=== PATIENT | female | born 1950 | race Caucasian/White ===

== ENCOUNTER 2019-01-28 07:37 | Emergency (ER) | payer MEDICARE, MEDICAID ==
[~2019-01-28] VITALS: Ht 157.5 cm; Wt 65.9 kg
[2019-01-28 09:43] LABS: BASO % 0.5 % (0.0-1.0); EOS # 0.1 10^3/uL (0.0-0.50); HEMATOCRIT 47.8 % (36.0-47.0); HEMOGLOBIN 16.2 g/dl (12.0-15.5); LYMPH # 1.8 10^3/uL (1.5-4.5); LYMPH % 22.8 % (24.0-44.0); MEAN CORPUSCULAR HEMOGLOBIN 30.3 pg (27.0-33.0); MEAN CORPUSCULAR HGB CONC 33.9 g/dl (32.0-36.5); MEAN CORPUSCULAR VOLUME 89.3 fl (80.0-96.0); MONO # 0.4 10^3/uL (0.0-0.8); MONO % 5.5 % (0.0-5.0); NEUTROPHILS # 5.6 10^3/uL (1.8-7.7); NEUTROPHILS % 69.8 % (36.0-66.0); PLATELET COUNT, AUTOMATED 272 10^3/uL (150-450); RED BLOOD COUNT 5.35 10^6/uL (4.00-5.40)
[2019-01-28 09:59] LABS: PARTIAL THROMBOPLASTIN TIME 25.4 SECONDS (25.4-37.6)
[2019-01-28 10:20] LABS: ALBUMIN 4.4 GM/DL (3.2-5.2); ALT/SGPT 23 U/L (12-78); BILIRUBIN,DIRECT 0.1 MG/DL (0.0-0.2); BILIRUBIN,TOTAL 0.6 MG/DL (0.2-1.0); BLOOD UREA NITROGEN 19 MG/DL (7-18); CALCIUM LEVEL 8.6 MG/DL (8.8-10.2); CARBON DIOXIDE LEVEL 25 MEQ/L (21-32); CHLORIDE LEVEL 111 MEQ/L (98-107); CPK CREATINE PHOSPHOKINASE 187 U/L (26-192); CREATININE FOR GFR 0.83 MG/DL (0.55-1.30); FREE T4 0.98 NG/DL (0.76-1.46); GLOMERULAR FILTRATION RATE > 60.0 (>39); GLUCOSE, FASTING 93 MG/DL (70-100); MB/CK RELATIVE INDEX 2.13 (< OR =4); NT-PRO BNP 726 PG/ML (<125); POTASSIUM SERUM 3.5 MEQ/L (3.5-5.1); SODIUM LEVEL 143 MEQ/L (136-145); TROPONIN I 0.03 NG/ML (< 0.10)
[2019-01-28 10:37] LABS: D-DIMER QUANT 754.77 ng/ml (<500)
--- NOTE | 2019-01-28 10:40 | REP ---
REASON: Chest pain. AP and lateral views were obtained. PRIORS: None. The technique utilized in obtaining the radiograph has magnified the cardiac silhouette and accentuated the interstitial markings. FINDINGS: The superior mediastinal structures are midline. The cardiac silhouette is unremarkable in size, shape, and position. The diaphragmatic surfaces of the lungs are regular, and the costophrenic angles are clear. The pulmonary dickerson are clear. The imaged osseous structures are intact. IMPRESSION: There is no acute cardiopulmonary disease. Electronically Signed by Greg Brooke DO 01/28/2019 01:51 P
--- NOTE | 2019-01-28 10:42 | REP ---
REASON: Back pain and hip pain. PRIORS: None. There is partial syndesmophyte formation at every level bilaterally but particularly on the right at L3-4. There is air density in L3-4 and L4-5 disc spaces consistent with vacuum phenomena from degenerative disc disease. There is significant disc space narrowing at those levels along with endplate sclerosis. There is anterior lipping at every level. Vertebral body height is within normal limits. Degenerative facet joint changes are present at every level bilaterally. IMPRESSION: Chronic changes as described above. Electronically Signed by Greg Brooke DO 01/28/2019 01:51 P
--- NOTE | 2019-01-28 10:43 | REP ---
REASON: Pain. PRIORS: None. There is mild to moderate asymmetric hip joint space narrowing. There is no acute fracture, dislocation, or subluxation. IMPRESSION: Degenerative changes. Electronically Signed by Greg Brooke DO 01/28/2019 01:51 P
[2019-01-28 10:45] LABS: INR 0.96; PROTHROMBIN TIME 12.9 SECONDS (12.1-14.4)
[2019-01-28] MEDS ORDERED: LISINOPRIL 10 MG TAB PO ONE ×2 (11:00→13:00)
[2019-01-28] MEDS ORDERED: FUROSEMIDE 20 MG/2 ML VIAL (J1940) IV ONE (11:00)
[2019-01-28 11:04] LABS: APPEARANCE, URINE CLEAR (CLEAR); BACTERIA, URINE AUTO NEGATIVE (NEGATIVE); BILIRUBIN, URINE AUTO NEGATIVE (NEGATIVE); BLOOD, URINE BLOOD NEGATIVE (NEGATIVE); COLOR, URINE YELLOW (YELLOW); GLUCOSE, URINE (UA) AUTO NEGATIVE (NEGATIVE); KETONE, URINE AUTO NEGATIVE (NEGATIVE); LEUKOCYTE ESTERASE, URINE AUTO NEGATIVE (NEGATIVE); MUCUS, URINE SMALL (NEGATIVE); NITRITE, URINE AUTO NEGATIVE (NEGATIVE); PROTEIN, URINE AUTO NEGATIVE (NEGATIVE); RBC, URINE AUTO 1 /HPF (0-3); SQUAMOUS EPITHELIAL CELL UR AU 0 /HPF (0-6); UROBILINOGEN, URINE AUTO 0.2 mg/dL (0.0-2.0); WBC, URINE AUTO 0 /HPF (0-3)
[2019-01-28] MEDS ORDERED: POTASSIUM CHLORIDE 10 MEQ SR TABLET PO ONE (11:15)
[2019-01-28 11:29] LABS: CREATININE, URINE 59.7 MG/DL; MALB URINE SIEMENS 34.5 MG/L; MAU/CREAT RATIO 57.7 MCG/MG (0.0-30.0)
[2019-01-28] MEDS ORDERED: CHLORTHALIDONE 12.5MG PER 1/2 TABLET PO ONE (16:00)
[2019-01-28] MEDS ORDERED: CARVedilol 12.5 MG TAB PO ONE (17:30)
[2019-01-28] MEDS ORDERED: ACETAMINOPHEN 650MG ER TAB (TYLENOL ARTHRITIS) PO ONE (17:30)
[2019-01-28 18:21] VITALS: BP 168/101
[2019-01-28 18:48] VITALS: BP 172/91
[2019-01-28] MEDS ORDERED: LISI10TA4 PO (18:53)
[2019-01-28] MEDS ORDERED: CARV12.5 PO (18:53)
[2019-01-28] MEDS ORDERED: CHLO125TA PO (18:53)
--- NOTE | 2019-01-28 20:59 | ECGEPIP ---
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
== END 2019-01-28 19:28 | disposition home or self-care (01) ==
LOC: M ED 07:37
DX: I10 Essential (primary) hypertension (principal); M16.11 Unilateral primary osteoarthritis, right hip; M54.16 Radiculopathy, lumbar region; Z72.0 Tobacco use
CPT/HCPCS: 71046; 72110; 73502; 80048; 80076; 81001; 82043; 82550; 82553; 83880; 84439; 84443; 84484; 85025; 85379; 85610; 85730; 93005; 96374; 99284; J1940

== ENCOUNTER → 2019-02-06 | Outpatient (REF) | payer MEDICARE, MEDICAID ==
[~2019-02-06] MED LIST: CARV12.5 PO; CHLO125TA PO; LISI10TA4 PO
[2019-02-06 13:41] LABS: CHOLESTEROL RISK RATIO 4.901 (<5)
[2019-02-06 14:18] LABS: HEMOGLOBIN A1c 5.8 %
== END ==
LOC: M SFHCPLAZ 09:19
PROVIDERS: ATTEND Family Medicine
DX: Z13.1 Encounter for screening for diabetes mellitus (principal); Z13.220 Encounter for screening for lipoid disorders; Z12.11 Encounter for screening for malignant neoplasm of colon

== ENCOUNTER → 2019-03-26 | Outpatient (CLI) | payer MEDICARE, MEDICAID ==
[~2019-03-26] MED LIST changes: +ISOVUE-370 76% 100ML VIAL (Q9967) As Ordered ONE
--- NOTE | 2019-03-26 13:49 | REP ---
CT of the abdomen, pelvis not included, with IV contrast, for renal artery stenosis: Axial images are acquired helical scanning and a reformatted in sagittal, coronal and maximal intensity projection 3-D angiographic for mass. There is a large calcified atheromatous plaque in the proximal left renal artery near its origin on the dedicated left renal artery reformats, utilizing the transverse diameter of the renal artery there is approximately 80% stenosis in this location. No other left renal artery stenosis is identified. The plaque is within the origin of the left renal artery. There is no atheromatous plaque in the aortic wall above or below the level of the left artery. There are several small calcified atheromatous plaques at the origin of the right renal artery resulting in less than 50% stenosis. There is an aneurysm of the distal abdominal aorta just above the bifurcation containing intraluminal thrombus. The diameter of the aneurysm on the axial images measures 3.3 x 3.7 cm. The aneurysm measures 4.4 cm craniocaudad length. There is scattered calcified atheroma throughout the abdominal aorta with no significant stenosis. There is calcified atheroma at the origins of the celiac and superior mesenteric arteries without significant stenosis. There is calcified atheroma near the origin of the inferior mesenteric artery, however the MARCE appears patent. The visualized lower lung dickerson are unremarkable. The hepatic parenchyma is homogeneous. The gallbladder is unremarkable. The pancreas and spleen are normal size and otherwise unremarkable. The adrenals are unremarkable. There are bilateral simple renal cortical cysts, the largest on the right measuring up to 2.2 cm on the left measuring up to 5.0 cm. The kidneys are otherwise unremarkable. There is bilateral symmetric renal cortical enhancement. There is no periaortic adenopathy or mass. There is no bowel distension. The visualized mesentery is unremarkable. There is advanced degenerative disc disease in the lumbar spine at L 03/04 L4-5. Impression: Suspect severe stenosis of the proximal left renal artery, likely near 80% narrowing. Small calcified atheroma at the origin of the right renal artery without significant stenosis. The 3.7 cm aneurysm of the distal abdominal aorta above the bifurcation. No significant stenosis of the celiac or superior mesenteric arteries is identified. The inferior mesenteric artery appears patent. Electronically Signed by Chace Raygoza MD 03/26/2019 01:41 P
== END ==
LOC: M RAD 08:53
PROVIDERS: ATTEND Internal Medicine Cardiovascular Disease
DX: I71.4 Abdominal aortic aneurysm, without rupture (principal); I70.1 Atherosclerosis of renal artery; I10 Essential (primary) hypertension
CPT/HCPCS: 74175; Q9967

== ENCOUNTER → 2019-04-30 | Outpatient (CLI) | payer MEDICARE, MEDICAID ==
[~2019-04-30] MED LIST changes: +ASPI81TA26 PO; +ATOR80TA59 PO; +BUPIVACAINE HCL 0.5% 10 ML VIAL As Ordered ONE; +HEPARIN 1,000 UNITS/ML 10ML VIAL (FOR RADIOLOGY& DIALYSIS ONLY) As Ordered ONE; +ISOVUE-300 61% 50ML VIAL (Q9967) As Ordered ONE; -ISOVUE-370 76% 100ML VIAL (Q9967) As Ordered ONE; +ISRA2.5C PO; +LIDOCAINE 2% MDV 20 ML VIAL As Ordered ONE; +MIDAZOLAM INJ 2 MG/2 ML VIAL (J2250) As Ordered ONE; +NITR0.4S14 SL; +PLAV1TAB2 PO; +TELM1TAB PO; +diphenhydrAMINE INJ 50MG/ML VIAL (J1200) As Ordered ONE; +fentaNYL 100 MCG/2 ML INJECTION (J3010) As Ordered ONE
[2019-04-30 07:28] LABS: HEMATOCRIT 45.2 % (36.0-47.0); HEMOGLOBIN 15.2 g/dl (12.0-15.5); MEAN CORPUSCULAR HEMOGLOBIN 31.1 pg (27.0-33.0); MEAN CORPUSCULAR HGB CONC 33.6 g/dl (32.0-36.5); MEAN CORPUSCULAR VOLUME 92.4 fl (80.0-96.0); PLATELET COUNT, AUTOMATED 276 10^3/uL (150-450); RED BLOOD COUNT 4.89 10^6/uL (4.00-5.40); WHITE BLOOD COUNT 7.4 10^3/uL (4.0-10.0)
[2019-04-30 07:59] LABS: CALCIUM LEVEL 9.5 MG/DL (8.8-10.2); CREATININE FOR GFR 1.07 MG/DL (0.55-1.30); POTASSIUM SERUM 3.7 MEQ/L (3.5-5.1)
[2019-04-30 12:30] VITALS: BP 142/72
--- NOTE | 2019-05-24 10:23 | REPIR ---
DATE OF PROCEDURE: 04/30/2019 ATTENDING SURGEON: Dr. Yumiko Santa SET UP OPERATOR TOOL: Osito Mai and Tracy Mayorga PREOPERATIVE DIAGNOSES: Renal artery stenosis 3.7 cm, abdominal aortic aneurysm. POSTOPERATIVE DIAGNOSES: Renal artery stenosis 3.7 cm, abdominal aortic aneurysm. PROCEDURE: Right common femoral arterial cannulation, selective right renal artery catheter placement, angiogram and pressure measurements, selective left renal artery catheter placement, angiogram pressure measurements, Mynx closure of the right common femoral arteriotomy. INDICATION: The patient is a 68-year-old female with an abdominal aortic aneurysm and renal artery stenosis, who will undergo renal artery angiogram with possible angioplasty and stent. ANESTHESIA: Local with 20 mL of 2% lidocaine mixed with 0.5% Marcaine. FLUORO TIME: 2.7 minutes. CONTRAST: 2 mL COMPLICATIONS: None. DRAINS: None. SPECIMENS: None. IMPLANTS: Right common femoral arteriotomy closure with a Mynx closure device. PROCEDURE: The patient was taken to the angiography suite, placed supine on the angiography table and then the right common femoral artery was cannulated. The catheter was placed in the right renal artery and angiogram performed showing no significant stenosis. Pressure measurements were also recorded showing no significant stenosis. The left renal artery was selectively cannulated and angiogram performed showing no significant stenosis. Pressure measurements were also performed showing mild pressure gradient but nothing significant to warrant angioplasty and stenting. Catheters and wires were removed. The sheath was removed and a Mynx closure device was used to close the arteriotomy in the right common femoral artery with an additional 10 minutes of adjunctive pressure applied for hemostasis. Dressings were then applied. The patient tolerated procedure well. All instrument, sponge, needle counts were correct at the end the case. There were no complications. Dr. Santa was present for and directed the entire case. The patient was transferred to the holding area and subsequent discharged in stable condition.
== END ==
LOC: M IRPRO 06:58
PROVIDERS: ATTEND Surgery Vascular Surgery
DX: I70.1 Atherosclerosis of renal artery (principal); I71.4 Abdominal aortic aneurysm, without rupture; I10 Essential (primary) hypertension; E78.5 Hyperlipidemia, unspecified; M15.0 Primary generalized (osteo)arthritis; I25.10 Atherosclerotic heart disease of native coronary artery without angina pectoris; Z95.5 Presence of coronary angioplasty implant and graft
CPT/HCPCS: 36252; 80048; 85027; C1760; C1769; C1887; C1894; Q9967

== ENCOUNTER → 2019-05-09 | Outpatient (CLI) | payer MEDICARE, MEDICAID ==
[~2019-05-09] MED LIST changes: -BUPIVACAINE HCL 0.5% 10 ML VIAL As Ordered ONE; -HEPARIN 1,000 UNITS/ML 10ML VIAL (FOR RADIOLOGY& DIALYSIS ONLY) As Ordered ONE; -ISOVUE-300 61% 50ML VIAL (Q9967) As Ordered ONE; -LIDOCAINE 2% MDV 20 ML VIAL As Ordered ONE; -MIDAZOLAM INJ 2 MG/2 ML VIAL (J2250) As Ordered ONE; -diphenhydrAMINE INJ 50MG/ML VIAL (J1200) As Ordered ONE; -fentaNYL 100 MCG/2 ML INJECTION (J3010) As Ordered ONE
--- NOTE | 2019-05-09 09:17 | REP ---
The ultrasound of the right inguinal area including Doppler and color Doppler ultrasound: The patient complains of pain in the right inguinal area. The patient had an angiogram 10/16/2021 and pain is at the puncture site. Ultrasonography in the area of pain identifies a focal hypoechoic lesion with irregular margins measuring 3.7 x 1.0 x 2.3 cm. There is a tract extending from this hypoechoic lesion to the skin surface. This hypoechoic lesion is superficial to the common femoral artery. With color Doppler assessment there is no vascular flow within this hypoechoic lesion . There is no hyperemia surrounding this hypoechoic lesion . With Doppler waveforms there is no vascular flow within this hypoechoic lesion . Impression: The hypoechoic lesion likely represents a hematoma. There is no vascular flow within this lesion . The lesion is superficial to the common femoral artery. There is a tract extending from this lesion to the skin surface. Electronically Signed by Chace Raygoza MD 05/09/2019 09:08 A
== END ==
LOC: M RAD 07:56
PROVIDERS: ATTEND Physician Assistant
DX: I97.618 Postprocedural hemorrhage of a circulatory system organ or structure following other circulatory system procedure (principal); I72.9 Aneurysm of unspecified site

== ENCOUNTER → 2019-05-25 | Outpatient (REF) | payer MEDICARE, MEDICAID ==
[2019-05-25 11:59] LABS: PLATELET COUNT, AUTOMATED 279 10^3/uL (150-450)
[2019-05-25 12:09] LABS: INR 1.02; PROTHROMBIN TIME 13.1 SECONDS (11.8-14.0)
[2019-05-25 12:10] LABS: PARTIAL THROMBOPLASTIN TIME 29.1 SECONDS (25.0-38.4)
== END ==
LOC: M LABDRAW1 10:02
PROVIDERS: ATTEND Physical Medicine & Rehabilitation
DX: Z79.01 Long term (current) use of anticoagulants (principal); D69.6 Thrombocytopenia, unspecified

== ENCOUNTER → 2019-08-02 | Outpatient (CLI) | payer MEDICARE, MEDICAID ==
--- NOTE | 2019-08-02 12:31 | REPMRS ---
Patient History The patient states she has not had a clinical breast exam in over a year. Patient is postmenopausal and is nulliparous. No known family history of cancer. 3D TOMOSYNTHESIS WAS PERFORMED. [facility] lifetime risk for breast cancer is 5.7%. Digital Woman Screen Mammo: August 02, 2019 - Exam #: [id number] Bilateral CC and MLO view(s) were taken. Technologist: Federica Grijalva, Technologist No prior studies available for comparison. FINDINGS: The breast tissue is heterogeneously dense. This may lower the sensitivity of mammography. There is no evidence of cancer on this mammogram. Assessment: BI-RADS/ACR category 2 mammogram. Benign Findings. Recommendation Routine screening mammogram of both breasts in 1 year (for women over age 40). This mammogram was interpreted with the aid of an FDA-approved computer-aided dectection system. Electronically Signed By: Chace Reyes MD 08/02/19 [id number]
--- NOTE | 2019-08-07 15:16 | DEXA ---
AP SPINE L1 - L4 1.150 -0.4 1.3 LT FEMUR TOTAL 0.842 -1.3 0.2 LT NECK 0.786 -1.8 -0.1 RT FEMUR TOTAL 0.876 -1.0 0.5 RT NECK 0.774 -1.9 -0.2 TOTAL BODY TOTAL OTHER COMMENTS: Normal bone densitometry of the spine. There is low bone density of the hips. FOLLOW-UP: Recommendation for the next bone density exam: 2 years. ASHLEY
== END ==
LOC: M WHC 09:23
PROVIDERS: ATTEND Student in an Organized Health Care Education/Training Program
DX: Z12.31 Encounter for screening mammogram for malignant neoplasm of breast (principal); Z91.89 Other specified personal risk factors, not elsewhere classified; Z78.0 Asymptomatic menopausal state

== ENCOUNTER 2019-10-08 08:56 | Outpatient (RCR) | payer MEDICARE, MEDICAID | END 2019-10-09 | LOC: M PT 08:56 | PROVIDERS: ATTEND Physical Medicine & Rehabilitation | DX: M48.061 Spinal stenosis, lumbar region without neurogenic claudication (principal); M51.26 Other intervertebral disc displacement, lumbar region; M47.817 Spondylosis without myelopathy or radiculopathy, lumbosacral region; M51.37 Other intervertebral disc degeneration, lumbosacral region ==

== ENCOUNTER → 2019-10-19 | Outpatient (CLI) | payer MEDICARE, MEDICAID ==
[~2019-10-19] MED LIST changes: -TELM1TAB PO; +TELM1TAB35 PO
--- NOTE | 2019-10-19 09:53 | REP ---
RENAL ULTRASOUND WITH DUPLEX DOPPLER RENAL ARTERY EVALUATION: Real-time sonographic evaluation of the kidneys performed. The kidneys are normal in size and echotexture, right kidney measuring 11.2 x 5.9 x 3.8 cm and left kidney 11.1 x 4.4 x 5.0 cm. There is no hydronephrosis. There are multiple bilateral renal cysts. A cyst in the upper pole of the right kidney measures 2.5 x 1.9 x 2.1 cm in the mid aspect 2.2 cm in maximum diameter and in the lower pole 1.5 cm in maximum diameter. In the upper pole of the left kidney a dominant cyst measures 5.2 x 4.8 x 5.1 cm. In the lower aspect of the left kidney medially, there is a cyst 1.6 cm maximally and 2.1 cm maximally. Ureteral jets are seen in the urinary bladder with Doppler color evaluation. Real-time ultrasound evaluation and duplex Doppler interrogation of the renal arteries is performed bilaterally. Peak systolic velocity of the abdominal aorta at the level of the renal arteries is 67.4 cm/s. Peak systolic velocity of the main right renal artery is 151 cm/s and renal to aortic ratio is 2.2. Resistive indices are measured in the upper, mid and lower thirds of the right kidney and range between 0.60 and 0.69. Acceleration times range between 0.042 and 0.052. Peak systolic velocity of the main left renal artery is 214 cm/s, renal to aortic ratio 3.2. Resistive indices left kidney range between 0.64 and 0.71. Acceleration times range between 0.048 and 0.050. IMPRESSION: Bilateral renal cysts. Peak systolic velocity of the main left renal artery is somewhat elevated 214 cm/s and renal to aortic ratio is upper normal at 3.2. I cannot exclude mild stenosis of the main left renal artery. Electronically Signed by Chace Reyes MD 10/20/2019 03:10 P
--- NOTE | 2019-10-19 09:56 | REP ---
ULTRASOUND ABDOMINAL AORTA: Real-time sonographic evaluation of the abdominal aorta performed. There is mild aneurysmal dilatation of the distal abdominal aorta measuring 3.6 x 3.7 cm. More proximally, the abdominal aorta is normal in caliber, proximal aspect just below the diaphragm has a maximum diameter of 2.4 cm, at the level of the renal artery is 1.9 cm and mid aspect 2.3 cm. Common iliac arteries are normal in caliber, right measuring 0.9 x 0.8 cm and left 1.2 x 1.0 cm. Mild to moderate atherosclerotic plaquing is seen diffusely of the abdominal aorta. IMPRESSION: Distal abdominal aortic aneurysm measuring 3.6 x 3.7 cm containing intraluminal plaque. Residual patent lumen is 1.9 x 2.8 cm. Electronically Signed by Chace Reyes MD 10/20/2019 03:11 P
== END ==
LOC: M RAD 07:25
PROVIDERS: ATTEND Physician Assistant
DX: I70.1 Atherosclerosis of renal artery (principal); I71.4 Abdominal aortic aneurysm, without rupture; N28.1 Cyst of kidney, acquired

== ENCOUNTER 2019-11-07 09:01 | Outpatient (RCR) | payer MEDICARE, MEDICAID ==
[~2019-11-07 09:01] MED LIST changes: +TELM1TAB PO; -TELM1TAB35 PO
== END 2019-11-09 ==
LOC: M PT 09:01
PROVIDERS: ATTEND Physical Medicine & Rehabilitation
DX: M47.817 Spondylosis without myelopathy or radiculopathy, lumbosacral region (principal); M51.36 Other intervertebral disc degeneration, lumbar region; M51.26 Other intervertebral disc displacement, lumbar region

== ENCOUNTER → 2019-11-16 | Outpatient (REF) | payer MEDICARE, MEDICAID ==
[~2019-11-16] MED LIST changes: -TELM1TAB PO; +TELM1TAB35 PO
[2019-11-16 11:34] LABS: BASO % 0.3 % (0.0-1.0); EOS # 0.1 10^3/uL (0.0-0.5); EOS % 1.9 % (0.0-3.0); HEMATOCRIT 48.2 % (36.0-47.0); HEMOGLOBIN 15.4 g/dl (12.0-15.5); LYMPH # 2.2 10^3/uL (1.5-5.0); LYMPH % 31.6 % (24.0-44.0); MEAN CORPUSCULAR VOLUME 93.8 fl (80.0-96.0); MONO # 0.5 10^3/uL (0.0-0.8); MONO % 7.4 % (0.0-5.0); NEUTROPHILS # 4.1 10^3/uL (1.5-8.5); NEUTROPHILS % 58.4 % (36.0-66.0); PLATELET COUNT, AUTOMATED 265 10^3/uL (150-450); RED BLOOD COUNT 5.14 10^6/uL (4.00-5.40)
[2019-11-16 11:52] LABS: HEMOGLOBIN A1c 5.9 %
[2019-11-16 12:12] LABS: ALBUMIN 4.3 GM/DL (3.2-5.2); ALT/SGPT 35 U/L (12-78); BILIRUBIN,TOTAL 0.6 MG/DL (0.2-1.0); BLOOD UREA NITROGEN 19 MG/DL (7-18); CALCIUM LEVEL 9.1 MG/DL (8.8-10.2); CARBON DIOXIDE LEVEL 29 MEQ/L (21-32); CHLORIDE LEVEL 109 MEQ/L (98-107); CREATININE FOR GFR 0.94 MG/DL (0.55-1.30); GLOMERULAR FILTRATION RATE > 60.0 (>39); GLUCOSE, FASTING 83 MG/DL (70-100); SODIUM LEVEL 143 MEQ/L (136-145); TOTAL PROTEIN 7.7 GM/DL (6.4-8.2)
== END ==
LOC: M SFHCPLAZ 09:56
PROVIDERS: ATTEND Family Medicine
DX: I10 Essential (primary) hypertension (principal); Z13.1 Encounter for screening for diabetes mellitus; Z79.899 Other long term (current) drug therapy
CPT/HCPCS: 36415; 80053; 83036; 85025; G0463

== ENCOUNTER 2019-12-05 08:56 | Outpatient (RCR) | payer MEDICARE, MEDICAID | END 2019-12-08 | LOC: M PT 08:56 | PROVIDERS: ATTEND Physical Medicine & Rehabilitation | DX: M47.817 Spondylosis without myelopathy or radiculopathy, lumbosacral region (principal); M51.37 Other intervertebral disc degeneration, lumbosacral region; M48.061 Spinal stenosis, lumbar region without neurogenic claudication; M51.26 Other intervertebral disc displacement, lumbar region; M41.26 Other idiopathic scoliosis, lumbar region ==

== ENCOUNTER → 2020-05-15 | Outpatient (CLI) | payer MEDICARE, MEDICAID ==
--- NOTE | 2020-07-04 09:32 | REP ---
RENAL ARTERY WITH DUPLEX DOPPLER RENAL ARTERY EVALUATION: HISTORY: Rule out renal artery stenosis. FINDINGS: Real time sonographic evaluation of the kidneys is performed. The kidneys are normal in size and echotexture, the right kidney measuring 1.2 x 4.5 x 4.3 cm and the left kidney measuring 11.5 x 5.4 x 5.3 cm. There is no hydronephrosis bilaterally. There are multiple bilateral renal cysts. A dominant cyst in the right upper pole measures 3.2 cm in maximum diameter and there is an adjacent 1.8 cm cyst. There is a cyst in the right lower pole 2.8 cm in maximum diameter. A dominant cyst in the left upper pole measures 5.9 cm in maximum diameter. A mid-left renal cyst measures 1.5 cm. There is an adjacent 8 mm cyst and a left lower pole cyst at 1.3 cm. The urinary bladder is grossly unremarkable. Incidental note is made of mild aneurysmal dilatation of the distal abdominal aorta, measuring 3.3 x 3.4 cm. Real time ultrasound evaluation and duplex Doppler interrogation of the renal arteries is performed bilaterally. Peak systolic velocity of the abdominal aorta at the level of the renal arteries is 72 cm/s. Peak systolic velocity of the main right renal artery is 126 cm/s. Renal to aortic ratio is 1.8. Resistive indices are measured in the upper, middle and lower thirds of the right kidney and range between 0.66 and 0.69. Acceleration times range between 0.042 and 0.054. Peak systolic velocity in the left renal artery is 172 cm/s. Renal to aortic ratio is 2.4. Resistive indices left kidney range between 0.62 and 0.73. Acceleration times range between 0.042 and 0.054. IMPRESSION: Multiple bilateral renal cysts. Somewhat elevated velocity at the origin of the main left renal artery, but no compelling duplex Doppler sonographic evidence of significant renal artery stenosis bilaterally. MTDD
== END ==
LOC: M RAD 08:26
PROVIDERS: ATTEND Physician Assistant
DX: I70.1 Atherosclerosis of renal artery (principal); N28.1 Cyst of kidney, acquired

== ENCOUNTER → 2020-08-01 | Outpatient (CLI) | payer MEDICARE, MEDICAID | LOC: M WHC 10:23 | PROVIDERS: ATTEND Family Medicine | DX: Z12.31 Encounter for screening mammogram for malignant neoplasm of breast (principal) ==

== ENCOUNTER → 2020-09-11 | Outpatient (CLI) | payer MEDICARE, MEDICAID ==
--- NOTE | 2020-09-11 15:59 | REPMRS ---
Patient History The patient states she has not had a clinical breast exam in over a year. No known family history of cancer. Digital Woman Screen Mammo: September 11, 2020 - Exam #: [id number] Bilateral CC and MLO view(s) were taken. Technologist: Helen Almonte, Technologist Prior study comparison: August 02, 2019, bilateral digital woman screen mammo performed at [facility]. FINDINGS: There are scattered fibroglandular densities. The Volpara volumetric breast density category is:B. There has been no change in the appearance of the mammogram from the prior studies. There is a mild amount of scattered fibroglandular density which is fairly symmetric. There is no interval development of dominant mass, architectural distortion, or grouped microcalcification suggestive of malignancy. 3-D tomosynthesis shows no additional findings. Assessment: BI-RADS/ACR category 1 mammogram. Negative Mammogram. Recommendation Routine screening mammogram of both breasts in 1 year (for women over age 40). This patient's [facility] Lifetime Breast Cancer Risk is estimated at 5.3 %. This mammogram was interpreted with the aid of an FDA-approved computer-aided dectection system. Electronically Signed By: Vincent Sewell MD 09/11/20 [id number]
== END ==
LOC: M WHC 12:59
PROVIDERS: ATTEND Student in an Organized Health Care Education/Training Program
DX: Z12.31 Encounter for screening mammogram for malignant neoplasm of breast (principal)

== ENCOUNTER → 2020-12-09 | Outpatient (CLI) | payer MEDICARE, MEDICAID ==
[~2020-12-09] MED LIST changes: +LISI10TA22 PO; -LISI10TA4 PO
--- NOTE | 2020-12-09 09:16 | REP ---
INDICATION: ATHEROSCLEROSIS RENAL ART /AAA COMPARISON: 10/19/2019 TECHNIQUE: Real time jamison scale ultrasound examination using curved array transducer. FINDINGS: Mild atherosclerotic changes are appreciated along with relatively stable infrarenal abdominal aortic aneurysm measuring 3.7 x 3.9 cm diameter and 4.9 cm in length originating roughly 4 cm below the renal arteries and tapering to normal at the level of the bifurcation to common iliac arteries. Proximal aorta: 2.3 x 2.9 cm Aorta at renal arteries: 1.7 x 1.6 cm Mid aorta: 2.2 x 2.2 cm Distal aorta: 3.7 x 3.9 cm Right common iliac artery: 1.0 x 1.3 cm Left common iliac artery: 0.9 x 1.3 cm IMPRESSION: 1. Mild generalized partially calcified atherosclerotic changes. 2. Stable infrarenal abdominal aortic aneurysm. <Electronically signed by William Melendez > 12/09/20 0913
--- NOTE | 2020-12-09 09:23 | REP ---
INDICATION: ATHEROSCLEROSIS RENAL ART /AAA COMPARISON: 05/15/2020, 10/19/2019 TECHNIQUE: Real time jamison scale ultrasound examination using curved array transducer followed by color Doppler evaluation of the renal vasculature. FINDINGS: Bilateral kidneys are relatively normal in reniform shape, size, and echotexture without hydronephrosis or nephrolithiasis. Right kidney measures 10.7 x 4.7 x 3.8 cm and includes multiple cysts including 3.1 x 2.2 x 2.1 cm simple midpole cyst, 2.4 x 2.3 x 2.5 cm simple lower pole cyst, and 2.1 x 1.1 x 1.9 cm mildly complex lower pole cyst. Left kidney measures 12.5 x 4.5 x 5.0 cm and includes 4.8 x 5.7 x 5.2 cm simple upper pole cyst along with 1.7 x 1.6 x 1.5 cm and 1.5 x 1.3 x 1.8 cm simple lower pole cysts. In comparison with prior examination cystic changes are relatively similar COLOR DOPPLER EVALUATION Peak aortic velocity: 60.0 centimeters/second RIGHT KIDNEY Renal arterial velocity: 109.5 centimeters/second Renal-aortic ratio: 1.8 Intrarenal resistive indices: 0.63-0.67 Intrarenal acceleration times: 0.011-0.025 LEFT KIDNEY Renal arterial velocity: 75 centimeters/second Renal-aortic ratio: 1.2 Intrarenal resistive indices: 0.61-0.65 Intrarenal acceleration times: 0.023-0.038 IMPRESSION: 1. Relatively stable and essentially benign appearing cystic changes to the bilateral kidneys. 2. Doppler interegation without sonographic evidence for renal arterial stenosis and improved when compared with prior examination. <Electronically signed by William Melendez > 12/09/20 0919
== END ==
LOC: M RAD 07:47
PROVIDERS: ATTEND Physician Assistant
DX: I70.1 Atherosclerosis of renal artery (principal); I71.4 Abdominal aortic aneurysm, without rupture

== ENCOUNTER → 2021-01-20 | Outpatient (CLI) | payer MEDICARE, MEDICAID ==
[2021-01-20 14:17] LABS: BLOOD UREA NITROGEN 24 MG/DL (7-18); CALCIUM LEVEL 10.1 MG/DL (8.8-10.2); CARBON DIOXIDE LEVEL 30 MEQ/L (21-32); CHLORIDE LEVEL 106 MEQ/L (98-107); CHOLESTEROL LEVEL 182 MG/DL (<200); CHOLESTEROL RISK RATIO 2.333 (<5); CREATININE FOR GFR 0.94 MG/DL (0.55-1.30); GLOMERULAR FILTRATION RATE > 60.0 (>39); GLUCOSE, FASTING 82 MG/DL (70-100); HDL CHOLESTEROL 78 MG/DL (>40); LDL CHOLESTEROL 69 MG/DL (<100); NON-HDL-C 104 MG/DL; POTASSIUM SERUM 4.4 MEQ/L (3.5-5.1); SODIUM LEVEL 141 MEQ/L (136-145); TRIGLYCERIDES LEVEL 176 MG/DL (<150)
== END ==
LOC: M PLALAB 09:06
PROVIDERS: ATTEND Physician Assistant
DX: I10 Essential (primary) hypertension (principal); I25.10 Atherosclerotic heart disease of native coronary artery without angina pectoris

== ENCOUNTER → 2021-05-27 | Outpatient (CLI) | payer MEDICARE, MEDICAID ==
[2021-05-27 11:34] LABS: CALCIUM LEVEL 8.8 MG/DL (8.8-10.2); CHOLESTEROL RISK RATIO 4.698 (<5); CREATININE FOR GFR 0.98 MG/DL (0.55-1.30); GLOMERULAR FILTRATION RATE 59.4 (>39)
== END ==
LOC: M PLALAB 08:17
PROVIDERS: ATTEND Physician Assistant
DX: I25.10 Atherosclerotic heart disease of native coronary artery without angina pectoris (principal)

== ENCOUNTER 2021-08-20 12:07 | Emergency (ER) | payer OTHER, MEDICARE, MEDICAID ==
[~2021-08-20] VITALS: Ht 157.5 cm; Wt 76.9 kg
[2021-08-20] MEDS ORDERED: MECL-86 (12:17)
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
[2021-08-20] MEDS ORDERED: NS 1,000 ML IV ONE (15:00)
--- OUTSIDE RECORDS SUMMARY | 2021-08-20 15:21 | CCD | Continuity of Care Document ---
Author Author Fiona THOMAS MD Organization Unknown Address [address] [place] [address], [place] [address] Phone [phone] Care Team Providers Care Engineering Aid Name Role Phone Johny Murphy MD AUTM [phone] SushilZoran DO AUTM [phone] Zechariah Betancourt-C AUTM [phone] Problems Active Problems Provider Date Essential hypertension SKIP Liao Onset: 9 Abdominal aortic aneurysm without rupture SKIP Liao Onset: 09/12/2019 Atherosclerosis of renal artery SKIP Liao Onset: 09/12/2019 Electrocardiogram abnormal SKIP Liao Onset: 09/12 Overweight SKIP Liao Onset: 09/12/2019 Dietary management surveillance SKIP Liao Onset: 09/12/2019 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 SKIP Liao Onset: 09/12/2019 Social History Type Date Description Comments Sex Unknown ETOH Use Does not consume alcohol Tobacco Use Start: Unknown End: Unknown Patient is a former smoker up to 1/2 ppd x40 yrs, quit 01/2019 Smoking Status Reviewed: 06/01/21 Patient is a former smoker up to 1/2 ppd x40 yrs, quit 01/2019 Exercise Type/Frequency Does housework 3 times a week Exercise Type/Frequency 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 twice a we ek Exercise Type/Frequency 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 Exercise Type/Frequency Walks daily 3 miles daily Exercise Limitations Orthopedic Problem Bilatera l Hip Pain Exercise Limitations Back Pain Allergies, Adverse Reactions, Alerts Active Allergies Criticality Reaction | Severity Comments Date Rosuvastatin Calcium Unable to assess criticality myal gustavo 05/06/2021 Pravastatin Unable to assess criticality myalgia 05/06/2021 Inactive Allergies NKDA Unable to assess criticality 02/07/2019 Medications Active Medications SIG Qnty Indications Ordering Provide r Date Livalo 2mg Tablets 1 b y mouth once daily 90tabs I71.4 Luis Eduardo Spencer MD 06/01/2021 Multi Vitamin Tablets 1 by mouth every day Unknown 05/31/2021 Meclizine HCL 25mg Tablets 1 by mouth three times daily as needed Zechariah Betancourt, PA -C 12/18/[address] 1 by mouth every day 90tabs I25.10 Luis Eduardo Spencer MD 02/04/2020 Nitroglycerin 0.4mg Tablets Sub 1 tab sl every 5 min times 3 doses as needed chest disc 25tabs J rik Spencer MD 03/18/2019 Isradipine 2.5mg Capsules 1 by mouth twice a day 180caps I10 Onel Thomas MD 02/07/2019 Micardis 40mg Tablets 1 by mouth every night at bedtime 90tabs I10 Luis Eduardo Spencer MD 02/07/2019 Chlorthalidone 25mg Tablets Take One-Half Tablet By Mouth Once Daily 45tabs I10 Onel Thomas MD 02/06/2019 Acetaminophen 500mg Tablets 1-2 by mouth every 6 hours as needed Unknown 02/07/20 19 Fluticasone Propionate 50mcg/Act Suspension 2 sprays to each nostril daily as needed Unknown Immunizations Description No Information Available Vital Signs Date Vital Result Comment 06/01/2021 8:20am Weight 160.00 lb Home Weight 163lb Height 63 inches 5'3" BMI (Body Mass Index) 28.3 kg/m2 BP Systolic Sitting 124 mmHg Ra, medium cuff BP Diastolic Sitting 78 mmHg Ra, medium cuff 12/01/2020 8:12am Weight 163.00 lb Home Weight 164lb Height 63 inches 5'3" BMI (Body Mass Index) 28.9 kg/m2 Heart Rate 66 /min BP Systolic Sitting 118 mmHg Ra, medium cuff BP Diastolic Sitting 70 mmHg Ra, medium cuff Results Test Acquired Date Facility Test Result H/L Range Note Lipid Panel 05/27/2021 [facility] nter [phone] Triglycerides Level 175 mg/dL High <150 Cholesterol Level 296 mg/dL High <200 HDL Cholesterol 63 mg/dL Normal >40 LDL Cholesterol 198 mg/dL High <100 Non-HDL-C 233 mg/dL Normal Cholesterol Risk Ratio 4.698 Normal <5 BMP 05/27/2021 [facility] nter [phone] Glucose, Fasting 95 mg/dL Normal 70-100 Blood Urea Nitrogen 23 mg/dL High 7-18 Creatinine For GFR 0.98 mg/dL Normal 0.55-1.30 Glomerular Filtration Rate 59.4 Normal >39 1 Sodium Level 143 mEq/L Normal 136-145 Potassium Serum 4.0 mEq/L Normal 3.5-5.1 Chloride Level 109 mEq/L High 98-107 Carbon Dioxide Level 27 mEq/L Normal 21-32 Anion Gap 7 mEq/L Low 8-16 Calcium Level 8.8 mg/dL Normal 8.8-10.2 BMP 01/20/2021 [facility] nter [phone] Glucose, Fasting 82 mg/dL Normal 70-100 Blood Urea Nitrogen 24 mg/dL High 7-18 Creatinine For GFR 0.94 mg/dL Normal 0.55-1.30 Glomerular Filtration Rate > 60.0 Normal >39 2 Sodium Level 141 mEq/L Normal 136-145 Potassium Serum 4.4 mEq/L Normal 3.5-5.1 Chloride Level 106 mEq/L Normal 98-107 Carbon Dioxide Level 30 mEq/L Normal 21-32 Anion Gap 5 mEq/L Low 8-16 Calcium Level 10.1 mg/dL Normal 8.8-10.2 Lipid Panel 01/20/2021 [facility] nter [phone] Triglycerides Level 176 mg/dL High <150 Cholesterol Level 182 mg/dL Normal <200 HDL Cholesterol 78 mg/dL Normal >40 LDL Cholesterol 69 mg/dL Normal <100 Non-HDL-C 104 mg/dL Normal Cholesterol Risk Ratio 2.333 Normal <5 1 Units are mL/min/1.73 m2 Chronic Kidney Disease Staging per NKF: Stage I & II GFR >=60 Normal to Mildly Decreased Stage III GFR 30-59 Moderately Decreased Stage IV GFR 15-29 Severely Decreased Stage V GFR <15 Very Little GFR Left ESRD GFR <15 on ASSISTANT PROFESSOR OF [employer]IMINAL JUSTICE 2 Units are mL/min/1.73 m2 Chronic Kidney Disease Staging per NKF: Stage I & II GFR >=60 Normal to Mildly Decreased Stage III GFR 30-59 Moderately Decreased Stage IV GFR 15-29 Severely Decreased Stage V GFR <15 Very Little GFR Left ESRD GFR <15 on ASSISTANT PROFESSOR OF [employer]INAL JUSTICE Procedures Date Code Description Status 06/01/2021 42567 Office/Outpatient Established Mo d MDM 30-39 Min Completed 06/01/2021 73028 ECG 12-Lead Completed 05/08/2021 07566 Chronic Care MGMT 20 Mins Clinical Staff Time Per Calendar Month Completed 05/08/2021 43211 Chronic Care Management Services Ea Addl 20 Min Completed 03/10/2021 87253 Chronic Care MGMT 20 Mins Clinical Staff Time Per Calendar Month Completed 02/06/2021 85773 Chronic Care MGMT 20 Mins Clinical Staff Time Per Calendar Month Completed 12/18/2020 86530 Chronic Care MGMT 20 Mins Clinical Staff Time Per Calendar Month Completed Medical Devices Description No Information Available Encounters Type Date Location Provider Dx Diagnosis Office Visit 06/01/2021 8:15a Main Office SKIP Gonzalez I10 Essential (primary) hypertension I70.1 Atherosclerosis of renal art [place] I25.10 Athscl heart disease of mary ve coronary artery w/o ang pctrs I71.4 Abdominal aortic aneurysm, w ithout rupture R94.31 Abnormal electrocardiogram [ ECG] [EKG] Z71.3 Dietary counseling and surve illance Office Visit 05/08/2021 1:19p Main Office Onel Thomas MD I10 Essential (primary) hypertension I25.10 Athscl heart disease of mary ve coronary artery w/o ang pctrs Office Visit 03/10/2021 11:59a Main Office Onel Thomas MD I10 Essential (primary) hypertension I70.1 Atherosclerosis of renal art ti[place] Office Visit 02/06/2021 1:22p Main Office Onel Thomas MD I10 Essential (primary) hypertension I25.10 Athscl heart disease of mary ve coronary artery w/o ang pctrs Office Visit 12/18/2020 12:35p Main Office Onel Thomas MD I10 Essential (primary) hypertension E66.3 Overweight I25.10 Athscl heart disease of mary ve coronary artery w/o ang pctrs Assessments Date Code Description Provider 06/01/2021 I10 Essential (primary) hypertension SKIP Gonzalez 06/01/2021 I70.1 Atherosclerosis of renal artery SKIP Gonzalez 06/01/2021 I25.10 Atherosclerotic heart disease of sun'aq coronary artery with SKIP Gonzalez 06/01/2021 I71.4 Abdominal aortic aneurysm, witho ut rupture SKIP Gonzalez 06/01/2021 R94.31 Abnormal electrocardiogram [ECG] [EKG] SKIP Gonzalez 06/01/2021 Z71.3 Dietary counseling and surveilla nce SKIP Gonzalez 05/08/2021 I10 Essential (primary) hypertension Onel Thomas MD 05/08/2021 I25.10 Atherosclerotic heart disease of sun'aq coronary artery with Onel Thomas MD 03/10/2021 I10 Essential (primary) hypertension Onel Thomas MD 03/10/2021 I70.1 Atherosclerosis of renal artery Onel Thomas MD 02/06/2021 I10 Essential (primary) hypertension Onel Thomas MD 02/06/2021 I25.10 Atherosclerotic heart disease of sun'aq coronary artery with Onel Thomas MD 12/18/2020 I10 Essential (primary) hypertension Onel Thomas MD 12/18/2020 E66.3 Overweight Onel Thomas MD 12/18/2020 I25.10 Atherosclerotic heart disease of sun'aq coronary artery with Onel Thomas MD Plan of Treatment Future Appointment(s):* 12/02/2021 8:15 am - SKIP Gonzalez at Main Office 06/01/2021 - SKIP Gonzalez* I10 Essential (primary) hypertension* Recommendations:* Continue chlorthalidone, isradipine, and Micardis at the current dosage Advised patient to please monitor blood pressures at home and to alert our office for readings >140/>90 * I70.1 Atherosclerosis of renal artery* Recommendations:* Continue per vascular She is agreeable to let us know if they do not establish with a vascular provider in the coming months At this time she does not wish for referral to [place] * I25.10 Atherosclerotic heart disease of sun'aq coronary artery with* Recommendations:* Begin pitavastatin (Livalo) Continue aspirin at the current dosage Advised patient to contact our office with any chest pain, shortness of breath, new or concerning symptoms * I71.4 Abdominal aortic aneurysm, without rupture* New Medication:* Livalo 2 mg - 1 by mouth once daily * Recommendations:* Continue management per vascular Continue aspirin at the current dosages Begin pitavastatin * R94.31 Abnormal electrocardiogram [ECG] [EKG]* Recommendations:* No further evaluation is needed at this time. * Z71.3 Dietary counseling and surveillance* Recommendations:* Recommended for patient to follow a more whole food diet. Advised patient to avoid overly processed foods and packaged foods. Advised patient to avoid sodas, juices and other liquid calories. Recommended at least 30 minutes of exercise 3 days a week. * All * Follow up:* Follow up in 6 months Functional Status Functional Condition Comment Date Status Independent with all ADL's Activ e Mental Status Description No Information Available Referrals Description No Information Available
--- OUTSIDE RECORDS SUMMARY | 2021-08-20 15:21 | CCD | Continuity of Care Document ---
Author Author Fiona THOMAS MD Organization Unknown Address [address] [place] [address], [place] [address] Phone [phone] Care Team Providers Care Research Assistant Name Role Phone Johny Murphy MD AUTM [phone] SushilZoran DO AUTM [phone] Zechariah Betancourt-C AUTM [phone] Problems Active Problems Provider Date Essential hypertension SKIP Liao Onset: 9 Abdominal aortic aneurysm without rupture SKIP Liao Onset: 09/12/2019 Atherosclerosis of renal artery SKIP Liao Onset: 09/12/2019 Electrocardiogram abnormal SKIP Liao Onset: 09/12 Overweight SKIP Liao Onset: 09/12/2019 Dietary management surveillance SKIP Liao Onset: 09/12/2019 Atherosclerotic heart disease of augustine coronary arter y without angina pectoris SKIP [...] ek Exercise Type/Frequency 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 Exercise Type/Frequency Walks daily 3 [...] Result H/L Range Note Lipid Panel 05/27/2021 [facility] nter [phone] Triglycerides Level 175 mg/dL High <150 Cholesterol Level 296 mg/dL High <200 HDL Cholesterol 63 mg/dL Normal >40 LDL Cholesterol 198 mg/dL High <100 Non-HDL-C 233 mg/dL Normal Cholesterol Risk Ratio 4.698 Normal <5 BMP 05/27/2021 [facility] nter [phone] Glucose, Fasting 95 mg/dL Normal 70-100 Blood [...] Level 8.8 mg/dL Normal 8.8-10.2 BMP 01/20/2021 [facility] nter [phone] Glucose, Fasting 82 mg/dL Normal 70-100 Blood [...] 10.1 mg/dL Normal 8.8-10.2 Lipid Panel 01/20/2021 [facility] nter [phone] Triglycerides Level 176 mg/dL High <150 Cholesterol [...] Little GFR Left ESRD GFR <15 on SALESFORCE DEVELOPER 2 Units are mL/min/1.73 m2 Chronic Kidney Disease Staging per NKF: Stage I & II GFR >=60 Normal to Mildly Decreased Stage III GFR 30-59 Moderately Decreased Stage IV GFR 15-29 Severely Decreased Stage V GFR <15 Very Little GFR Left ESRD GFR <15 on SALESFORCE DEVELOPER Procedures Date Code Description Status 06/01/2021 85623 Office/Outpatient Established Mo d MDM 30-39 Min Completed 06/01/2021 87787 ECG 12-Lead Completed 05/08/2021 54902 Chronic Care MGMT 20 Mins Clinical Staff Time Per Calendar Month Completed 05/08/2021 33889 Chronic Care Management Services Ea Addl 20 Min Completed 03/10/2021 73768 Chronic Care MGMT 20 Mins Clinical Staff Time Per Calendar Month Completed 02/06/2021 86341 Chronic Care MGMT 20 Mins Clinical Staff Time Per Calendar Month Completed 12/18/2020 48632 Chronic Care MGMT 20 Mins Clinical Staff [...] Gonzalez 06/01/2021 I25.10 Atherosclerotic heart disease of augustine coronary artery with SKIP Gonzalez 06/01/2021 I71.4 Abdominal aortic aneurysm, witho ut rupture SKIP Gonzalez 06/01/2021 R94.31 Abnormal electrocardiogram [ECG] [EKG] SKIP Gonzalez 06/01/2021 Z71.3 Dietary counseling and surveilla nce SKIP Gonzalez 05/08/2021 I10 Essential (primary) hypertension Onel Thomas MD 05/08/2021 I25.10 Atherosclerotic heart disease of augustine coronary artery with Onel Thomas MD 03/10/2021 I10 Essential (primary) hypertension Onel Thomas MD 03/10/2021 I70.1 Atherosclerosis of renal artery Onel Thomas MD 02/06/2021 I10 Essential (primary) hypertension Onel Thomas MD 02/06/2021 I25.10 Atherosclerotic heart disease of augustine coronary artery with Onel Thomas MD 12/18/2020 I10 Essential (primary) hypertension Onel Thomas MD 12/18/2020 E66.3 Overweight Onel Thomas MD 12/18/2020 I25.10 Atherosclerotic heart disease of augustine coronary artery with Onel Thomas MD Plan [...] [place] * I25.10 Atherosclerotic heart disease of augustine coronary artery with* Recommendations:* Begin pitavastatin (Livalo) [...]
--- OUTSIDE RECORDS SUMMARY | 2021-08-20 15:21 | CCD ---
Author Author [facility] Organization [facility] Address Unknown Phone Unavailable Care Team Providers Care Carroting Machine Offbearer Name Role Phone Mathew Leonardo Unavailable PROBLEMS Type Condition ICD9-CM Code [id number] Code Onset Dates Condition S tatus W/U Status Risk SNOMED Code Notes Problem Renal artery stenosis I70.1 Active confirmed 479476257 Problem Abdominal aortic aneurysm without rupture I71.4 Active confirmed 65759433 Problem Nicotine dependence with current use F17.200 Act elo confirmed 510620873 Problem Essential hypertension I10 Active confirmed 15910207 Problem Stented coronary artery Z95.5 Active confirmed 421490346 ALLERGIES No Known Allergies ENCOUNTERS from 1950 to 2021-07-15 Encounter Location Date Provider Diagnosis [facility] Resident [address] [facility] [address] [phone] [place] [id number] 30 Jun, 2021 Mathew Leonardo Essential hypertensi on I10 ; Vertigo R42 ; Renal artery stenosis I70.1 ; Abdominal aortic aneurysm without rupture I71.4 ; Stented coronary artery Z95.5 ; Screening mammogram, encounter for Z12.31 ; Diabetes mellitus screening Z13.1 ; Encounter for screening for malignant neoplasm of colon Z12.11 ; Encounter for screening for malignant neoplasm of rectum Z12.12 and Immunization due Z23 IMMUNIZATIONS Vaccine Route Administration Date Status COVID-19 dose #2 given elsewhere Unspecified Unknown Dec Administered COVID-19 dose #1 given elsewhere Unspecified Unknown Dec 07, 2020 Administered Influenza 18 yrs & older Flublok IM Intramuscular Jul 09, 2021 Administered Influenza 18 yrs & older Flublok IM Intramuscular Aug 01, 2020 Administered Influenza 18 yrs & older Flublok IM Intramuscular Jul 30, 2019 Administered Pneumococcal Adult 0.5mL Pneumovax 23 IM Intramuscular Aug 01 020 Administered Pneumococcal 0.5mL Prevnar 13 IM Intramuscular February 12, 2019 A dministered SOCIAL HISTORY Tobacco Use: Social History Observation Description Date Details (start date - stop date) Former Smoker Sex Assigned At : Social History Observation Description Sex Assigned At Unknown Education: Question Answer Notes Level of Education: Finished High School Audit Question Answer Notes Total Score: 1 Interpretation: Alcohol Education Language: Question Answer Notes Languages spoken: Macedonian Protestant: Question Answer Notes Protestant 21 Restorationist Sexual Hx: Question Answer Notes Had sex in the last 12 months (vaginal, oral, or anal)? No Have you ever had an STD? No Drug and Alcohol Question Answer Notes Total Score: 0 Interpretation: No problems reported Alcohol Screening: Question Answer Notes Did you have a drink containing alcohol in the past year? Ye s Points 1 Interpretation Negative How many drinks did you have on a typica l day when you were drinking in the past year? 1 or 2 (0 points) How often did you have a drink containing alcohol in t he past year? Monthly or less (1 point) Tobacco Use: Question Answer Notes Are you a: former smoker How long has it been since you last smoked? 1-5 years REASON FOR REFERRAL No Information VITAL SIGNS Weight 164 lbs Jun, Weight-kg 74.39 kg Jun, Height 62 in Jun, BMI 29.99 kg/m2 Jun, Heart Rate 104 /min Jun, Respiratory Rate 18 /min Jun, Temperature 97 degrees Fahrenheit Jun, Oximetry 97 Jun, Blood pressure systolic 128 mm Hg Jun, Blood pressure diastolic 70 mm Hg Jun, MEDICATIONS Medication SIG (Take, Route, Frequency, Duration) Notes Start Da te End Date Status Aspirin 81 81 MG 1 tablet Orally Once a day Active Telmisartan 40 MG 1 tablet Orally Once a day for 30 day(s) Active Fluticasone Propionate 50 MCG/ACT 1 spray in each nost ril Nasally Once a day for 30 day(s) Nov, Not-Taking Nitroglycerin 0.4 MG as directed Sublingual Active Isradipine 2.5 MG 1 capsule Orally Twice a day Active Chlorthalidone 25 MG TAKE ONE HALF TABLET BY MOUTH EVERY DAY Oral Active Micardis 40 MG 1 tablet Orally Once a day Active Meclizine HCl 25 MG 1 tablet as needed Orally Once a day for 30 day(s ) Active Rosuvastatin Calcium 40 MG 1 tablet Orally Once a day Active Livalo 2 MG 1 tablet Orally Once a day for 30 day(s) Active PROCEDURES from 1950 to 2021-07-15 Procedure Date Ordered Result Body Site Imm: Flublok Quadrivalent 18 years & older 0.5mL IM Influenza 20 30-06-30 N/A RESULTS No Results REASON FOR VISIT 6 MONTHS follow up MEDICAL (GENERAL) HISTORY Type Description Date Medical History HTN, Goal of < 140/90 Medical History osteoarthritis of right hip Medical History low back pain Surgical History Cardiac Stenting (. Hurley) 03/13/19 Surgical History angiogram 04/30/2019 Goals Section No Information Health Concerns No Information MEDICAL EQUIPMENT No Information MENTAL STATUS No Information FUNCTIONAL STATUS No Information ASSESSMENTS Encounter Date Diagnosis Assessment Notes Treatment Notes Treatm ent Clinical Notes Jun, Essential hypertension (ICD-10 - I10) Currently being followed by cardiology for her high blood pressure. Blood pressure well controlled today. Continue current medications. Patient verbalized understanding and agreement with plan moving forward. Jun, Vertigo (ICD-10 - R42) Meclizine prescribed at patient's last visit for benign positional vertigo. Patient reports that she has been taking this medication intermittently with significant improvement in her symptoms. We discussed the Elissa-Hallpike maneuver and that should she experience refractory vertigo that she can come to the office for us to perform the maneuver. Jun, Renal artery stenosis (ICD-10 - I70.1) Per vascular surgery and the most recent renal ultrasound this has resolved. Jun, Abdominal aortic aneurysm without rupture (ICD-1 0 - I71.4) Patient will get a repeat abdominal ultrasound to evaluate for AAA in December 2021, her current aneurysm is stable since it was first detected 2 years ago. Patient verbalized understanding and agreement with plan moving forward. Jun, Stented coronary artery (ICD-10 - Z95.5) Continue with aspirin, statin. She denies any chest pain and continues to do daily walks. Denies any episodes of bleeding including melena, hematochezia, hematuria, hemoptysis, hematemesis. Jun, Screening mammogram, encounter for (ICD-10 - Z12 .31) Last done 09/2020 with BI-RADS 1 mammogram will put in order when she is due in September. Jun, Diabetes mellitus screening (ICD-10 - Z13.1) BMP in February 2021 was within normal limits Jun, Encounter for screening for malignant neoplasm of colon (ICD-10 - Z12.11) Gets cologuard screening every 3 years, last in 2019 was negative though I do not see it in the system. We will follow up on this at 6-month well visit. Jun, Encounter for screening for malignant neoplasm of rectum (ICD-10 - Z12.12) Jun, Immunization due (ICD-10 - Z23) Patient Educated with: Flu Recombinant [id number] (Flu Recombinant [id number]) Patient advised to stay well-hydrated and take Tylenol in the event she experienced side effects from the vaccine including myalgias and fevers. Patient verbalized understanding and agreement with plan moving forward. PLAN OF TREATMENT Medication Medication Name Sig Start Date Stop Date Aspirin 81 81 MG 1 tablet Orally Once a day Meclizine HCl 25 MG 1 tablet as needed Orally Once a day for 30 day(s) Rosuvastatin Calcium 40 MG 1 tablet Orally Once a day Micardis 40 MG 1 tablet Orally Once a day Nitroglycerin 0.4 MG as directed Sublingual Isradipine 2.5 MG 1 capsule Orally Twice a day Chlorthalidone 25 MG TAKE ONE HALF TABLET BY MOUTH EVERY DAY Ora l Treatment Notes Assessment Notes Clinical Notes Essential hypertension Currently being f ollowed by cardiology for her high blood pressure. Blood pressure well controlled today. Continue current medications. Patient verbalized understanding and agreement with plan moving forward. Vertigo Meclizine prescribed at patient's last visit for benign positional vertigo. Patient reports that she has been taking this medication intermittently with significant improvement in her symptoms. We discussed the Elissa-Hallpike maneuver and that should she experience refractory vertigo that she can come to the office for us to perform the maneuver. Renal artery stenosis Per vascular surge ry and the most recent renal ultrasound this has resolved. Abdominal aortic aneurysm without rupture Patient will get a repeat abdominal ultrasound to evaluate for AAA in December 2021, her current aneurysm is stable since it was first detected 2 years ago. Patient verbalized understanding and agreement with plan moving forward. Stented coronary artery Continue with as pirin, statin. She denies any chest pain and continues to do daily walks. Denies any episodes of bleeding including melena, hematochezia, hematuria, hemoptysis, hematemesis. Screening mammogram, encounter for Last done 09/2020 with BI-RADS 1 mammogram will put in order when she is due in September. Diabetes mellitus screening BMP in February 08 021 was within normal limits Encounter for screening for malignant neoplasm of colon Gets cologuard screening every 3 years, last in 2019 was negative though I do not see it in the system. We will follow up on this at 6-month well visit. Immunization due Patient Educated with: Flu R ecombinant [id number] (Flu Recombinant [id number]) Patient advised to stay well-hydrated an d take Tylenol in the event she experienced side effects from the vaccine including myalgias and fevers. Patient verbalized understanding and agreement with plan moving forward. Next Appt Details 6 Months Reason:[place] Follow Up:6 [place]ths[place] Insurance Providers Payer Name Payer Address Payer Phone Insured Name Patient Relati onship to Insured Coverage Start Date Coverage End Date MEDICARE Part A and B [address] [facility] [address] [phone] LOY [place] MEDICAID [email or web address] [address] [facility] [address] LOY [place]YA
--- OUTSIDE RECORDS SUMMARY | 2021-08-20 15:22 | CCD ---
Author Author [facility] Organization [facility] Address Unknown Phone Unavailable Care Team Providers Care Deputy Sheriff Custody Name Role Phone NATALIA, L LAVINIA PA Unavailable Unavailable NATALIA, L LAVINIA PA Unavailable Unavailable NATALIA, L LAVINIA PA Unavailable Unavailable NATALIA, L LAVINIA PA Unavailable Unavailable NATALIA, L LAVINIA PA Unavailable Unavailable NATALIA, L LAVINIA PA Unavailable Unavailable NATALIA, L LAVINIA PA Unavailable Unavailable NATALIA, L LAVINIA PA Unavailable Unavailable NATALIA, L LAVINIA PA Unavailable Unavailable NATALIA, L LAVINIA PA Unavailable Unavailable NATALIA, L LAVINIA PA Unavailable Unavailable NATALIA, L LAVINIA PA Unavailable Unavailable NATALIA, L LAVINIA PA Unavailable Unavailable NATALIA, L LAVINIA PA Unavailable Unavailable NATALIA, L LAVINIA PA Unavailable Unavailable NATALIA, L LAVINIA PA Unavailable Unavailable ANTECOL, Rhett DUNHAM MD Unavailable Unavailable ANTECOL, Rhett DUNHAM MD Unavailable Unavailable ANTECOL, Rhett DUNHAM MD Unavailable Unavailable ANTECOL, Rhett DUNHAM MD Unavailable Unavailable ANTECOLRhett MD Unavailable Unavailable ANTECOL, Rhett DUNHAM MD Unavailable Unavailable ANTECOL, Rhett DUNHAM MD Unavailable Unavailable ANTECOL, Rhett DUNHAM MD Unavailable Unavailable ANTECOL, Rhett DUNHAM MD Unavailable Unavailable ANTECOLRhett MD Unavailable Unavailable ANTECOLRhett MD Unavailable Unavailable ANTECOL, Rhett DUNHAM MD Unavailable Unavailable ANTECOL, Rhett DUNHAM MD Unavailable Unavailable ANTECOLRhett MD Unavailable Unavailable ANTECOL, Rhett DUNHAM MD Unavailable Unavailable ANTECOL, Rhett DUNHAM MD Unavailable Unavailable ANTECOLRhett MD Unavailable Unavailable ANTECOL, Rhett DUNHAM MD Unavailable Unavailable ANTECOL, Rhett DUNHAM MD Unavailable Unavailable ANTECOL, Rhett DUNHAM MD Unavailable Unavailable ANTECOL, Rhett DUNHAM MD Unavailable Unavailable ANTECOL, Rhett DUNHAM MD Unavailable Unavailable ANTECOL, Rhett DUNHAM MD Unavailable Unavailable ANTECOL, Rhett DUNHAM MD Unavailable Unavailable ANTECOL, Rhett DUNHAM MD Unavailable Unavailable ANTECOL, Rhett DUNHAM MD Unavailable Unavailable ANTECOL, Rhett DUNHAM MD Unavailable Unavailable ANTECOL, Rhett DUNHAM MD Unavailable Unavailable ANTECOL, Rhett DUNHAM MD Unavailable Unavailable ANTECOL, Rhett DUNHAM MD Unavailable Unavailable ANTECOL, Rhett DUNHAM MD Unavailable Unavailable ANTECOL, Rhett DUNHAM MD Unavailable Unavailable ANTECOL, Rhett DUNHAM MD Unavailable Unavailable ANTECOL, Rhett DUNHAM MD Unavailable Unavailable ANTECOL, Rhett DUNHAM MD Unavailable Unavailable ANTECOL, Rhett DUNHAM MD Unavailable Unavailable ANTECOL, Rhett DUNHAM MD Unavailable Unavailable ANTECOL, Rhett DUNHAM MD Unavailable Unavailable ANTECOL, Rhett DUNHAM MD Unavailable Unavailable ANTECOL, Rhett DUNHAM MD Unavailable Unavailable ANTECOL, Rhett DUNHAM MD Unavailable Unavailable ANTECOL, Rhett DUNHAM MD Unavailable Unavailable ANTECOL, Rhett DUNHAM MD Unavailable Unavailable ANTECOL, Rhett DUNHAM MD Unavailable Unavailable ANTECOL, Rhett DUNHAM MD Unavailable Unavailable ANTECOL, Rhett DUNHAM MD Unavailable Unavailable ANTECOL, Rhett DUNHAM MD Unavailable Unavailable ANTECOL, Rhett DUNHAM MD Unavailable Unavailable ANTECOL, Rhett DUNHAM MD Unavailable Unavailable ANTECOL, Rhett DUNHAM MD Unavailable Unavailable ANTECOL, Rhett DUNHAM MD Unavailable Unavailable ANTECOL, Rhett DUNHAM MD Unavailable Unavailable ANTECOL, Rhett DUNHAM MD Unavailable Unavailable ANTECOL, Rhett DUNHAM MD Unavailable Unavailable Re-disclosure Warning The records that you are about to access may contain information from federally-assisted alcohol or drug abuse programs. If such information is present, then the following federally mandated warning applies: This information has been disclosed to you from records protected by federal confidentiality rules (42 CFR part 2). The federal rules prohibit you from making any further disclosure of this information unless further disclosure is expressly permitted by the written consent of the person to whom it pertains or as otherwise permitted by 42 CFR part 2. A general authorization for the release of medical or other information is NOT sufficient for this purpose. The Federal rules restrict any use of the information to criminally investigate or prosecute any alcohol or drug abuse patient.The records that you are about to access may contain highly sensitive health information, the redisclosure of which is protected by Article 27-F of the [place] State Public Health law. If you continue you may have access to information: Regarding HIV / AIDS; Provided by facilities licensed or operated by the [facility] Office of Mental Health; or Provided by the [facility] Office for People With Developmental Disabilities. If such information is present, then the following [facility] mandated warning applies: This information has been disclosed to you from confidential records which are protected by state law. State law prohibits you from making any further disclosure of this information without the specific written consent of the person to whom it pertains, or as otherwise permitted by law. Any unauthorized further disclosure in violation of state law may result in a fine or penitentiary sentence or both. A general authorization for the release of medical or other information is NOT sufficient authorization for further disc losure. Allergies and Adverse Reactions Type Description Substance Reaction Status Data Source(s ) Drug Allergy Drug Allergy NKDA [facility] ([facility]) Family History Family Member Name Family Member Gender Family Member Status Date o f Status Description Data Source(s) Unknown Male Problem [facility] ([facility]) Encounters Encounter Providers Location Date Indications Data Source(s ) [place] [address] [facility] [address] 07/09/2021 12:00:00 AM EDT eCW1 ([facility]) Outpatient Attender: LAVINIA VALDIVIA Main Office 06/01/2021 0 8:15:00 AM EDT [facility] ([facility]) Office Visit Attender: CHARLA GAMBLE MD Main Office 05/08/2021 01: 19:00 PM EDT [facility] ([facility]) Office Visit Attender: CHARLA GAMBLE MD Main Office 03/10/2021 11: 59:00 AM EDT [facility] ([facility]) Unknown [address] [facility] [address] 02/13/2021 12:00:00 AM EDT eCW1 ([facility]) Office Visit Attender: CHARLA GAMBLE MD Main Office 02/06/2021 01: 22:00 PM EDT [facility] ([facility]) [place] [address] [facility] [address] 01/13/2021 12:00:00 AM EDT eCW1 ([facility]) Office Visit Attender: CHARLA GAMBLE MD Main Office 12/18/2020 11: 35:00 AM EST [facility] ([facility]) Outpatient Attender: LAVINIA VALDIVIA Main Office 12/01/2020 0 7:15:00 AM EST [facility] ([facility]) [place] [address] [facility] [address] 11/21/2020 12:00:00 AM EST eCW1 ([facility]) Outpatient [address] [facility] [address] 11/18/2020 12:00:00 AM EST eCW1 ([facility]) Office Visit Attender: CHARLA GAMBLE MD Main Office 11/12/2020 02: 56:00 PM EST [facility] ([facility]) Office Visit Attender: CHARLA GAMBLE MD Main Office 10/13/2020 01: 00:00 PM EST [facility] ([facility]) Office Visit Attender: CHARLA GAMBLE MD Main Office 08/22/2020 02: 28:00 PM EST [facility] ([facility]) Out[place] [address] [facility] [address] 08/01/2020 12:00:00 AM EDT eCW1 ([facility]) Office Visit Attender: CHARLA GAMBLE MD Main Office 07/14/2020 12: 53:00 PM EDT [facility] ([facility]) Immunizations Vaccine Date Status Description Data Source(s) COVID-19 VACCINE Moderna 08/11/2021 12:00:00 AM EDT completed [facility] Vaccine Series Complete: YESThis Data wa s Submitted to [facility] Via [employer]. influenza, recombinant, quadrIvalent,injectable, prese rvative free 07/09/2021 10:09:00 AM EDT completed eCW1 ([facility]) COVID-19 VACCINE, MRNA-1273, LNP-S (MODERNA)/PF 01/03/2021 1 2:00:00 AM EDT completed [facility] COVID-19 dose #2 given elsewhere Unspecified 12/31/2020 11:5 1:00 AM EDT completed eCW1 ([facility]) COVID-19 dose #2 given elsewhere Unspecified 12/31/2020 11:5 1:00 AM EDT completed eCW1 ([facility]) COVID-19 dose #2 given elsewhere Unspecified 12/31/2020 11:5 1:00 AM EDT completed eCW1 ([facility]) COVID-19 VACCINE Moderna 12/31/2020 12:00:00 AM EDT completed [facility] Vaccine Series Complete: YESThis Data wa s Submitted to [facility] Via [employer]. COVID-19 dose #1 given elsewhere Unspecified 12/07/2020 11:5 1:00 AM EST completed eCW1 ([facility]) COVID-19 dose #1 given elsewhere Unspecified 12/07/2020 11:5 1:00 AM EST completed eCW1 ([facility]) COVID-19 dose #1 given elsewhere Unspecified 12/07/2020 11:5 1:00 AM EST completed eCW1 ([facility]) COVID-19 VACCINE Moderna 12/07/2020 12:00:00 AM EST completed [facility] Vaccine Series Complete: NOThis Data was Submitted to [facility] Via [employer]. COVID-19 VACCINE, MRNA-1273, LNP-S (MODERNA)/PF 12/07/2020 1 2:00:00 AM EST completed [facility] pneumococcal polysaccharide PPV23 08/01/2020 11:26:00 AM EDT comple kari eCW1 ([facility]) pneumococcal polysaccharide PPV23 08/01/2020 11:26:00 AM EDT comple kari eCW1 ([facility]) pneumococcal polysaccharide PPV23 08/01/2020 11:26:00 AM EDT comple kari eCW1 ([facility]) pneumococcal polysaccharide PPV23 08/01/2020 11:26:00 AM EDT comple kari eCW1 ([facility]) pneumococcal polysaccharide PPV23 08/01/2020 11:26:00 AM EDT comple kari eCW1 ([facility]) pneumococcal polysaccharide PPV23 08/01/2020 11:26:00 AM EDT comple kari eCW1 ([facility]) influenza, recombinant, quadrIvalent,injectable, prese rvative free 08/01/2020 11:24:00 AM EDT completed eCW1 ([facility]) influenza, recombinant, quadrIvalent,injectable, prese rvative free 08/01/2020 11:24:00 AM EDT completed eCW1 ([facility]) influenza, recombinant, quadrIvalent,injectable, prese rvative free 08/01/2020 11:24:00 AM EDT completed eCW1 ([facility]) influenza, recombinant, quadrIvalent,injectable, prese rvative free 08/01/2020 11:24:00 AM EDT completed eCW1 ([facility]) influenza, recombinant, quadrIvalent,injectable, prese rvative free 08/01/2020 11:24:00 AM EDT completed eCW1 ([facility]) influenza, recombinant, quadrIvalent,injectable, prese rvative free 08/01/2020 11:24:00 AM EDT completed eCW1 ([facility]) Medications Medication Brand Name Start Date Product Form Dose Route Admi nistrative Instructions Pharmacy Instructions Status Indications Reaction Description Data Source(s) 100 mcg/0.5 mL 08/11/2021 12:00:00 AM EDT suspension 0 INJECT DIRECTED (THIRD DOSE) INJECT DIRECTED (THIRD DOSE) SOLD: 08/11/2021 [facility] Meclizine Hydrochloride 25 MG Oral Tablet MECLIZINE HCL 07/09/2021 12:00:00 AM EDT tablet 30 TAKE ONE TABLET BY MOUTH SHAUNA DAY NEEDED TAKE ONE TABLET BY MOUTH EVERY DAY NEEDED SOLD: 07/14/2021 [facility] pitavastatin 2 MG Oral Tablet [Livalo] Livalo 06/01/2021 12:00:00 AM EDT ORAL active [facility] ([facility]) 2 mg 06/01/2021 12:00:00 AM EDT tablet 90 TAKE ONE TABLET BY MOUTH EVERY DAY TAKE ONE TABLET BY MOUTH EVERY DAY SOLD: 06/03/2021 [facility] Multi Vitamin 05/31/2021 12:00:00 AM EDT ORAL acti ve [facility] ([facility]) Isradipine 2.5 MG Oral Capsule ISRADIPINE 04/28/2021 12:00:00 AM EDT capsule 180 TAKE ONE CAPSULE BY MOUTH TWICE A DAY TAKE ONE C APSULE BY MOUTH TWICE A DAY SOLD: 05/01/2021 [facility] 2.5 mg 04/28/2021 12:00:00 AM EDT capsule 180 TAKE ONE CAPSULE BY MOUTH TWICE A DAY TAKE ONE CAPSULE BY MOUTH TWICE A DAY SOLD: 08/12/2021 [facility] Meclizine Hydrochloride 25 MG Oral Tablet MECLIZINE HCL 02/14/2021 12:00:00 AM EDT tablet 30 TAKE ONE TABLET BY MOUTH SHAUNA DAY NEEDED TAKE ONE TABLET BY MOUTH EVERY DAY NEEDED SOLD: 02/17/2021 [facility] Meclizine Hydrochloride 25 MG Oral Tablet MECLIZINE HCL 02/14/2021 12:00:00 AM EDT tablet 30 TAKE ONE TABLET BY MOUTH SHAUNA NEEDED TAKE ONE TABLET BY MOUTH EVERY DAY NEEDED SOLD: 03/24/2021 [facility] Rosuvastatin calcium 40 MG Oral Tablet ROSUVASTATIN CALCIUM 02/09/2021 12:00:00 AM EDT tablet 90 TAKE ONE TABLET BY MOUTH AT BEDTIME TAKE ONE TABLET BY MOUTH AT BEDTIME SOLD: 02/12/2021 [facility] 25 mg 02/04/2021 12:00:00 AM EDT tablet 45 TAKE ONE-HALF TABLET BY MOUTH ONCE DAILY TAKE ONE-HALF TABLET BY MOUTH ONCE DAILY SOLD: 02/08/2021 [facility] 25 mg 02/04/2021 12:00:00 AM EDT tablet 45 TAKE ONE-HALF TABLET BY MOUTH ONCE DAILY TAKE ONE-HALF TABLET BY MOUTH ONCE DAILY SOLD: 05/13/2021 [facility] 25 mg 02/04/2021 12:00:00 AM EDT tablet 45 TAKE ONE-HALF TABLET BY MOUTH ONCE DAILY TAKE ONE-HALF TABLET BY MOUTH ONCE DAILY SOLD: 08/11/2021 [facility] Meclizine Hydrochloride 25 MG Oral Tablet Meclizine HCL 12/18/2020 12:00:00 AM EST ORAL active [facility] ([facility]) Meclizine Hydrochloride 25 MG Oral Tablet MECLIZINE HCL 12/17/2020 12:00:00 AM EST tablet 30 TAKE ONE TABLET BY MOUTH SHAUNA NEEDED TAKE ONE TABLET BY MOUTH EVERY DAY NEEDED SOLD: 12/21/2020 [facility] 0.4 mg 12/01/2020 12:00:00 AM EST tablet, sublingual [address] PLACE ONE TABLET UNDER THE TONGUE EVERY 5 MINUTES X 3 DOSES NEEDED FOR CHEST PLACE ONE TABLET UNDER THE TONGUE EVERY 5 MINUTES X 3 DOSES NEEDED FOR CHEST SOLD: 12/06/2020 [facility] 50 mcg/actuation 11/25/2020 12:00:00 AM EST spray,suspension 32 SPRAY 1 SPRAY IN EACH NOSTRIL ONCE DAILY SPRAY 1 SPRAY IN EACH NOSTRIL ONCE DAILY SOLD: 11/26/2020 [facility] Fluticasone Propionate 50 MCG/ACT Fluticasone Propionate 50 MCG/ACT 11/25/2020 12:00:00 AM EST 1.0 {spray_in_each_nostril} acti ve Fluticasone Propionate 50 MCG/ACT eCW1 ([facility]) Fluticasone Propionate 50 MCG/ACT Fluticasone Propionate 50 MCG/ACT 11/25/2020 12:00:00 AM EST 1.0 {spray_in_each_nostril} acti ve Fluticasone Propionate 50 MCG/ACT eCW1 ([facility]) Meclizine Hydrochloride 25 MG Oral Tablet MECLIZINE HCL 11/25/2020 12:00:00 AM EST tablet 30 TAKE ONE TABLET BY MOUTH SHAUNA RY DAY NEEDED TAKE ONE TABLET BY MOUTH EVERY DAY NEEDED SOLD: 11/26/2020 [facility] Fluticasone Propionate 50 MCG/ACT Fluticasone Propionate 50 MCG/ACT 11/25/2020 12:00:00 AM EST 1.0 {spray_in_each_nostril} acti ve Fluticasone Propionate 50 MCG/ACT eCW1 ([facility]) Fluticasone Propionate 50 MCG/ACT Fluticasone Propionate 50 MCG/ACT 11/25/2020 12:00:00 AM EST 1.0 {spray_in_each_nostril} susp ended Fluticasone Propionate 50 MCG/ACT eCW1 ([facility]) Fluticasone Propionate 50 MCG/ACT Fluticasone Propionate 50 MCG/ACT 11/25/2020 12:00:00 AM EST 1.0 {spray_in_each_nostril} acti ve Fluticasone Propionate 50 MCG/ACT eCW1 ([facility]) Meclizine Hydrochloride 25 MG Oral Tablet Meclizine HC l 25 MG Meclizine HCl 25 MG 11/18/2020 12:00:00 AM EST 1.0 {tablet_as_needed} active Meclizine HCl 25 MG eCW1 ([facility]) Meclizine Hydrochloride 25 MG Oral Tablet Meclizine HC l 25 MG Meclizine HCl 25 MG 11/18/2020 12:00:00 AM EST 1.0 {tablet_as_needed} active Meclizine HCl 25 MG eCW1 ([facility]) telmisartan 40 MG Oral Tablet TELMISARTAN 10/14/2020 12:00:00 AM EST tablet 90 TAKE 1 TABLET BY MOUTH EVERY NIGHT AT BEDTIME TAKE 1 T ABLET BY MOUTH EVERY NIGHT AT BEDTIME SOLD: 10/14/2020 [facility] telmisartan 40 MG Oral Tablet TELMISARTAN 10/14/2020 12:00:00 AM EST tablet 90 TAKE 1 TABLET BY MOUTH EVERY NIGHT AT BEDTIME TAKE 1 T ABLET BY MOUTH EVERY NIGHT AT BEDTIME SOLD: 08/11/2021 [facility] telmisartan 40 MG Oral Tablet TELMISARTAN 10/14/2020 12:00:00 AM EST tablet 90 TAKE 1 TABLET BY MOUTH EVERY NIGHT AT BEDTIME TAKE 1 T ABLET BY MOUTH EVERY NIGHT AT BEDTIME SOLD: 01/20/2021 [facility] telmisartan 40 MG Oral Tablet TELMISARTAN 10/14/2020 12:00:00 AM EST tablet 90 TAKE 1 TABLET BY MOUTH EVERY NIGHT AT BEDTIME TAKE 1 T ABLET BY MOUTH EVERY NIGHT AT BEDTIME SOLD: 04/24/2021 [facility] Rosuvastatin calcium 40 MG Oral Tablet ROSUVASTATIN CALCIUM 05/27/2020 12:00:00 AM EDT tablet 90 TAKE 1 TABLET BY MOUTH EVERY NIGHT AT BEDTIME TAKE 1 TABLET BY MOUTH EVERY NIGHT AT BEDTIME SOLD: 11/13/2020 [facility] 25 mg 03/05/2020 12:00:00 AM EDT tablet 45 TAKE ONE-HALF TABLET BY MOUTH ONCE DAILY TAKE ONE-HALF TABLET BY MOUTH ONCE DAILY SOLD: 08/10/2020 [facility] 25 mg 03/05/2020 12:00:00 AM EDT tablet 45 TAKE ONE-HALF TABLET BY MOUTH ONCE DAILY TAKE ONE-HALF TABLET BY MOUTH ONCE DAILY SOLD: 11/13/2020 [facility] Isradipine 2.5 MG Oral Capsule ISRADIPINE 02/18/2020 12:00:00 AM EDT capsule 180 TAKE ONE CAPSULE BY MOUTH TWICE A DAY TAKE ONE C APSULE BY MOUTH TWICE A DAY SOLD: 01/15/2021 [facility] Isradipine 2.5 MG Oral Capsule ISRADIPINE 02/18/2020 12:00:00 AM EDT capsule 180 TAKE ONE CAPSULE BY MOUTH TWICE A DAY TAKE ONE C APSULE BY MOUTH TWICE A DAY SOLD: 10/08/2020 [facility] Isradipine 2.5 MG Oral Capsule ISRADIPINE 02/18/2020 12:00:00 AM EDT capsule 180 TAKE ONE CAPSULE BY MOUTH TWICE A DAY TAKE ONE C APSULE BY MOUTH TWICE A DAY SOLD: 06/22/2020 [facility] 40 mg 09/12/2019 12:00:00 AM EST tablet 90 TAKE 1 TABLET BY MOUTH EVERY NIGHT AT BEDTIME TAKE 1 TABLET BY MOUTH EVERY NIGHT AT BEDTIME SOLD: 07/08/20 20 [facility] Insurance Providers Payer name Policy type / Coverage type Policy ID Covered republican ID Covered republican's relationship to nur Policy Nur Plan Information MEDICARE [id number] SP [id number] MEDICARE [id number] Felecia [id number] [id number] MEDICAID [id number] Felecia [id number] MEDICAID [id number] SP [id number] COMMERCIAL GENERIC OPTIMIZE RESEARCH Felecia OPTIMIZE RESEARCH ANSMedicaid [id number] Medicaid [place] Med[place] Part B [id number] Self [id number] [place] [id number] Self [id number] ANSMedicaid [id number] ANSI-Medicare Part B [id number] [facility] [id number] Self [id number] Medicare (Part B) Medicare Primary [id number] Self [id number] Medicaid [facility] Part B [id number] Self [id number] Medicare (Part B) Medicare Primary [id number] Self [id number] ANSI-Medicare Part B [id number] ANSI-Medicaid [id number] MEDICAID PI PI MEDICARE PI PI MEDICARE [id number] SP [id number] ANSI-Medicare Part B [id number] ANSI-Medicaid [id number] Medicaid Medigap Part B [id number] Self [id number] Medicare (Part B) Medicare Primary [id number] Self [id number] Medicaid Medigap Part B [id number] Self [id number] Medicare (Part B) Medicare Primary [id number] Self 7 [id number] ANSI-Medicare Part B [id number] [place] [id number] SP [id number] K [facility]-Medicaid [id number] MEDICARE [id number] SP [id number] [place] [id number] SP [id number] MEDICAID [id number] SP [id number] ANSI-Medicare Part B [id number] Problems, Conditions, and Diagnoses No Information Surgeries/Procedures Procedure Description Date Indications Data Source(s) Imm: Flublok Quadrivalent 18 years & older 0.5mL IM Influenz a 07/09/2021 12:00:00 AM EDT eCW1 ([facility]) ECG ROUTINE ECG W/LEAST 12 LDS W/I&R 06/01/2021 12:00: 00 AM EDT [facility] ([facility]) OFFICE OUTPATIENT VISIT 25 MINUTES 06/01/2021 12:00:00 AM EDT [facility] ([facility]) Chronic Care Management Services Ea Addl 20 Min 2020 12:00:00 AM EDT [facility] ([facility]) Chronic Care MGMT 20 Mins Clinical Staff Time Per Calendar M [facility] 05/08/2021 12:00:00 AM EDT [facility] ([facility] [employer]) Chronic Care MGMT 20 Mins Clinical Staff Time Per Calendar M [facility] 03/10/2021 12:00:00 AM EDT [facility] ([facility] [employer] [employer] [facility]) Chronic Care MGMT 20 Mins Clinical Staff Time Per Calendar M [facility] 02/06/2021 12:00:00 AM EDT [facility] ([facility] [employer] [employer] [facility]) Chronic Care MGMT 20 Mins Clinical Staff Time Per Calendar M [facility] 12/18/2020 12:00:00 AM EST [facility] ([facility]) ECG ROUTINE ECG W/LEAST 12 LDS W/I&R 12/01/2020 12:00: 00 AM EST [facility] ([facility]) OFFICE OUTPATIENT VISIT 25 MINUTES 12/01/2020 12:00:00 AM EST [facility] ([facility]) PNEUMOCOCCAL POLYSAC VACCINE 23-V 2 />YR SUBQ/IM 08/01 12:00:00 AM EDT eCW1 ([facility]) Immunization: Flublok Quadrivalent (18 years & older) 0.5mL IM (Influenza) 08/01/2020 12:00:00 AM EDT eCW1 ([facility]) Results ID Date Data Source [id number] 05/27/2021 08:43:00 AM EDT [facility] ([facility]) Name Value Range Interpretation Code Description Data Starla rce(s) Supporting Document(s) Glucose, Fasting 95 mg/dL 70-100 [facility] ([facility]) Blood Urea Nitrogen 23 mg/dL 7-18 [facility] ([facility]) Creatinine For GFR 0.98 mg/dL 0.55-1.30 [facility] ([facility]) Sodium Level 143 meq/L 136-145 [facility] ([facility]) Glomerular Filtration Rate 59.4 MED ENT ([facility]) <content>Units are mL/min/1.73 m2</content>
<content></content>
<content>Chronic Kidney Disease Staging per NKF:</content>
<content></content>
<content>Stage I & II GFR >=60 Normal to Mildly Decreased</content>
<content>Stage III GFR 30- 59 Moderately Decreased</content>
<content>Stage IV GFR 15-29 Severely Decreased</content>
<content>Stage V GFR <15 Very Little GFR Left</content>
<content>ESRD GFR <15 on HEADER OPERATOR</content>
<content></content> Potassium Serum 4.0 meq/L 3.5-5.1 [facility] ([facility]) Chloride Level 109 meq/L 98-107 [facility] ([facility]) Carbon Dioxide Level 27 meq/L 21-32 [facility] ([facility]) Anion Gap 7 meq/L 8-16 [facility] ([facility]) Calcium Level 8.8 mg/dL 8.8-10.2 [facility] ([facility]) ID Date Data Source [id number] 05/27/2021 08:43:00 AM EDT [facility] ([facility]) Name Value Range Interpretation Code Description Data Starla rce(s) Supporting Document(s) Cholesterol Level 296 mg/dL [facility] ([facility]) Triglycerides Level 175 mg/dL [facility] ([facility]) HDL Cholesterol 63 mg/dL [facility] ([facility]) Non-HDL-C 233 mg/dL [facility] ([facility]) LDL Cholesterol 198 mg/dL [facility] ([facility]) Cholesterol Risk Ratio 4.698 [facility] ([facility]) ID Date Data Source [id number] 01/20/2021 09:27:00 AM EDT [facility] ([facility]) Name Value Range Interpretation Code Description Data Starla rce(s) Supporting Document(s) Cholesterol Level 182 mg/dL [facility] ([facility]) Triglycerides Level 176 mg/dL [facility] ([facility]) LDL Cholesterol 69 mg/dL [facility] ([facility]) HDL Cholesterol 78 mg/dL [facility] ([facility]) Non-HDL-C 104 mg/dL [facility] (Cardiology [facility]) Cholesterol Risk Ratio 2.333 [facility] ([facility]) ID Date Data Source [id number] 01/20/2021 09:27:00 AM EDT [facility] Name Value Range Interpretation Code Description Data Starla rce(s) Supporting Document(s) Blood Urea Nitrogen 24 mg/dL 7-18 [facility] (Ca rdiology [facility]) Glucose, Fasting 82 mg/dL 70-100 [facility] Glomerular Filtration Rate Laboratory test result [facility] (Cardiology [facility]) <content>Units are mL/min/1.73 m2</content>
<content></content>
<content>Chronic Kidney Disease Staging per NKF:</content>
<content></content>
<content>Stage I & II GFR >=60 Normal to Mildly Decreased</content>
<content>Stage III GFR 30- 59 Moderately Decreased</content>
<content>Stage IV GFR 15-29 Severely Decreased</content>
<content>Stage V GFR <15 Very Little GFR Left</content>
<content>ESRD GFR <15 on HEADER OPERATOR</content>
<content></content> Creatinine For GFR 0.94 mg/dL 0.55-1.30 [facility] ([facility]) Potassium Serum 4.4 meq/L 3.5-5.1 [facility] ([facility]) Sodium Level 141 meq/L 136-145 [facility] ([facility]) Chloride Level 106 meq/L 98-107 [facility] ([facility]) Anion Gap 5 meq/L 8-16 [facility] Carbon Dioxide Level 30 meq/L 21-32 [facility] ([facility]) Calcium Level 10.1 mg/dL 8.8-10.2 [facility] ([facility]) Procedure Social History Code Duration Value Status Description Data Source(s ) Smoking 07/09/2021 12:00:00 AM EDT Former Smoker completed Former Smoker eCW1 ([facility]) Smoking 06/01/2021 12:00:00 AM EDT Patient is a former smoker completed Patient is a former smoker [facility] ([facility]) Smoking 01/13/2021 12:00:00 AM EDT Former Smoker completed Former Smoker eCW1 ([facility]) Smoking 01/13/2021 12:00:00 AM EDT Former Smoker completed Former Smoker eCW1 ([facility]) Smoking 11/18/2020 12:00:00 AM EST Former Smoker completed Former Smoker eCW1 ([facility]) Smoking 11/18/2020 12:00:00 AM EST Former Smoker completed Former Smoker eCW1 ([facility]) Smoking 08/01/2020 12:00:00 AM EDT Former Smoker completed Former Smoker eCW1 ([facility]) Vital Signs ID Date Data Source UNK Name Value Range Interpretation Code Description Data Source(s) Body weight 164 [lb_av] 164 [lb_av] eCW1 ([facility]) Body weight 74.39 kg 74.39 kg W1 ([facility]) Body height 62 [in_i] 62 [in_i] eCW1 ([facility]) Body mass index (BMI) [Ratio] 29.99 kg/m2 29.99 kg/m2 W1 ([facility]) Heart rate 104 /min 104 /min eCW1 ([facility]) Respiratory rate 18 /min 18 /min eCW1 ([facility]) Body temperature 97 [degF] 97 [degF] eCW1 ([facility]) Systolic blood pressure 128 mm[Hg] 128 mm[Hg] e CW1 ([facility]) Diastolic blood pressure 70 mm[Hg] 70 mm[Hg] eCW1 ([facility]) Systolic blood pressure--sitting 124 mm[Hg] 124 mm[Hg] [facility] ([facility]) Ra, medium cuff Diastolic blood pressure--sitting 78 mm[Hg] 78 mm[Hg] [facility] ([facility]) Ra, medium cuff Body weight 160.00 [lb_av] 160.00 [lb_av] MEDEN T ([facility]) Body height 63 [in_i] 63 [in_i] [facility] ([facility]) 5'3" Body mass index (BMI) [Ratio] 28.3 kg/m2 28.3 k g/m2 [facility] ([facility]) Body mass index (BMI) [Ratio] 30.18 kg/m2 30.18 kg/m2 eCW1 ([facility]) Body weight 165 [lb_av] 165 [lb_av] eCW1 ([facility]) Body height 62 [in_i] 62 [in_i] eCW1 ([facility]) Respiratory rate 16 /min 16 /min eCW1 ([facility]) Heart rate 98 /min 98 /min eCW1 ([facility]) Body temperature 96.9 [degF] 96.9 [degF] eCW1 ( [facility]) Systolic blood pressure 134 mm[Hg] 134 mm[Hg] e CW1 ([facility]) Diastolic blood pressure 82 mm[Hg] 82 mm[Hg] eCW1 ([facility]) Systolic blood pressure 145 mm[Hg] 145 mm[Hg] M EDENT ([facility], ) Diastolic blood pressure 85 mm[Hg] 85 mm[Hg] MEDENT ([facility], ) Body height 63 [in_i] 63 [in_i] MEDENT ([facility], ) 5'3" Body weight 165.25 [lb_av] 165.25 [lb_av] MEDEN T ([facility], ) Body surface area Derived from formula 1.78 m2 1.78 m2 [facility], [facility] Body mass index (BMI) [Ratio] 29.3 kg/m2 29.3 k g/m2 [facility], ) [place] body weight 115 [lb_av] 115 [lb_av] MEDEN T ([facility], ) Body weight 74.957 kg 74.957 kg MEDENT ([facility], ) Body weight 163.00 [lb_av] 163.00 [lb_av] MEDEN T ([facility]) Body height 63 [in_i] 63 [in_i] [facility] ([facility]) 5'3" Body mass index (BMI) [Ratio] 28.9 kg/m2 28.9 k g/m2 [facility] ([facility]) Heart rate 66 /min 66 /min [facility] ([facility]) Systolic blood pressure--sitting 118 mm[Hg] 118 mm[Hg] [facility] ([facility]) Ra, medium cuff Diastolic blood pressure--sitting 70 mm[Hg] 70 mm[Hg] [facility] ([facility]) Ra, medium cuff Body weight 165.6 [lb_av] 165.6 [lb_av] eCW1 ([facility]) Body height 62 [in_i] 62 [in_i] eCW1 ([facility]) Body mass index (BMI) [Ratio] 30.29 kg/m2 30.29 kg/m2 eCW1 ([facility]) Heart rate 92 /min 92 /min eCW1 ([facility]) Respiratory rate 18 /min 18 /min eCW1 ([facility]) Body temperature 96.8 [degF] 96.8 [degF] eCW1 ( [facility]) Systolic blood pressure 130 mm[Hg] 130 mm[Hg] e CW1 ([facility]) Diastolic blood pressure 80 mm[Hg] 80 mm[Hg] eCW1 ([facility]) Body weight 162 [lb_av] 162 [lb_av] eCW1 ([facility]) Body height 62 [in_i] 62 [in_i] eCW1 ([facility]) Body mass index (BMI) [Ratio] 29.63 kg/m2 29.63 kg/m2 W1 ([facility]) Heart rate 106 /min 106 /min eCW1 ([facility]) Respiratory rate 18 /min 18 /min eCW1 ([facility]) Body temperature 97.0 [degF] 97.0 [degF] eCW1 ( [facility]) Systolic blood pressure 110 mm[Hg] 110 mm[Hg] e CW1 ([facility]) Diastolic blood pressure 78 mm[Hg] 78 mm[Hg] eCW1 ([facility]) Patient Treatment Plan of Care Planned Activity Planned Date Details Description Data Source (s) Fluticasone Propionate 50 MCG/ACT 11/25/2020 12:00:00 AM EST eCW1 ([facility]) Fluticasone Propionate 50 MCG/ACT 11/25/2020 12:00:00 AM EST eCW1 ([facility]) Meclizine Hydrochloride 25 MG Oral Tablet 11/18/2020 12:00:00 AM ES T eCW1 ([facility]) Meclizine Hydrochloride 25 MG Oral Tablet 11/18/2020 12:00:00 AM ES T eCW1 ([facility])
--- OUTSIDE RECORDS SUMMARY | 2021-08-20 15:22 | CCD | Continuity of Care Document ---
Author Author Fiona FISHER PA Organization Unknown Address [address] [place] [address], [place] [address] Phone [phone] Care Team Providers Care Plant Buyer Name Role Phone Johny Murphy MD AUTM [phone] Zoran Ling DO AUTM [phone] Zechariah Betancourt-C AUTM [phone] Problems Active Problems Provider Date Essential hypertension SKIP Liao Onset: 9 Abdominal aortic aneurysm without rupture SKIP Liao Onset: 09/12/2019 Atherosclerosis of renal artery SKIP Liao Onset: 09/12/2019 Electrocardiogram abnormal SKIP Liao Onset: 09/12 Overweight SKIP Liao Onset: 09/12/2019 Dietary management surveillance SKIP Liao Onset: 09/12/2019 Atherosclerotic heart disease of [place] coronary arter y without angina pectoris SKIP [...] ek Exercise Type/Frequency 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 sporadical ly jack 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 needed Exercise Type/Frequency Walks daily 3 [...] Result H/L Range Note Lipid Panel 05/27/2021 [facility] nter [phone] Triglycerides Level 175 mg/dL High <150 Cholesterol Level 296 mg/dL High <200 HDL Cholesterol 63 mg/dL Normal >40 LDL Cholesterol 198 mg/dL High <100 Non-HDL-C 233 mg/dL Normal Cholesterol Risk Ratio 4.698 Normal <5 BMP 05/27/2021 [facility] nter [phone] Glucose, Fasting 95 mg/dL Normal 70-100 Blood [...] Level 8.8 mg/dL Normal 8.8-10.2 BMP 01/20/2021 [facility] nter [phone] Glucose, Fasting 82 mg/dL Normal 70-100 Blood [...] 10.1 mg/dL Normal 8.8-10.2 Lipid Panel 01/20/2021 [facility] nter [phone] Triglycerides Level 176 mg/dL High <150 Cholesterol [...] Little GFR Left ESRD GFR <15 on PIE MAKER MACHINE 2 Units are mL/min/1.73 m2 Chronic Kidney Disease Staging per NKF: Stage I & II GFR >=60 Normal to Mildly Decreased Stage III GFR 30-59 Moderately Decreased Stage IV GFR 15-29 Severely Decreased Stage V GFR <15 Very Little GFR Left ESRD GFR <15 on PIE MAKER MACHINE Procedures Date Code Description Status 06/01/2021 74809 Office/Outpatient Established Mo d MDM 30-39 Min Completed 06/01/2021 98504 ECG 12-Lead Completed 03/10/2021 12481 Chronic Care MGMT 20 Mins Clinical Staff Time Per Calendar Month Completed 02/06/2021 66919 Chronic Care MGMT 20 Mins Clinical Staff Time Per Calendar Month Completed 12/18/2020 92394 Chronic Care MGMT 20 Mins Clinical Staff [...] Dietary counseling and surve illance Office Visit 03/10/2021 11:59a Main Office Onel [...] Gonzalez 06/01/2021 I25.10 Atherosclerotic heart disease of [place] coronary artery with SKIP Gonzalez 06/01/2021 I71.4 Abdominal aortic aneurysm, witho ut rupture SKIP Gonzalez 06/01/2021 R94.31 Abnormal electrocardiogram [ECG] [EKG] SKIP Gonzalez 06/01/2021 Z71.3 Dietary counseling and surveilla nce SKIP Gonzalez 03/10/2021 I10 Essential (primary) hypertension Onel Thomas MD 03/10/2021 I70.1 Atherosclerosis of renal artery Onel Thomas MD 02/06/2021 I10 Essential (primary) hypertension Onel Thomas MD 02/06/2021 I25.10 Atherosclerotic heart disease of [place] coronary artery with Onel Thomas MD 12/18/2020 I10 Essential (primary) hypertension Onel Thomas MD 12/18/2020 E66.3 Overweight Onel Thomas MD 12/18/2020 I25.10 Atherosclerotic heart disease of [place] coronary artery with Onel Thomas MD Plan [...] Tiara * I25.10 Atherosclerotic heart disease of [place] coronary artery with* Recommendations:* Begin pitavastatin (Livalo) [...]
--- OUTSIDE RECORDS SUMMARY | 2021-08-20 15:22 | CCD | Continuity of Care Document ---
Author Author Fiona FISHER PA Organization Unknown Address [id number] [place] [address], [place] [address] Phone [phone] Care Team Providers Care Dairy Management Specialist Name Role Phone Johny Murphy MD AUTM [phone] Zoran Ling DO AUTM [phone] Janna Hauser MD AUTM [phone] Zechariah Betancourt-C AUTM [phone] Problems Active Problems Provider Date Essential hypertension SKIP Liao Onset: 9 Abdominal aortic aneurysm without rupture SKIP Liao Onset: 09/12/2019 Atherosclerosis of renal artery SKIP Liao Onset: 09/12/2019 Electrocardiogram abnormal SKIP Liao Onset: 09/12 Overweight SKIP Liao Onset: 09/12/2019 Dietary management surveillance SKIP Liao Onset: 09/12/2019 Atherosclerotic heart disease of [place] coronary arter y without angina pectoris SKIP Liao Onset: 09/12/2019 Social History Type Date Description Comments Sex Unknown ETOH Use Does not consume alcohol Tobacco Use Start: Unknown End: Unknown Patient is a former smoker up to 1/2 ppd x40 yrs, quit 01/2019 Smoking Status Reviewed: 12/01/20 Patient is a former smoker up to 1/2 ppd x40 yrs, quit 01/2019 Exercise Type/Frequency Does housework 3 times a week Exercise Type/Frequency 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 twice a we ek Exercise Type/Frequency 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 Exercise Type/Frequency Walks daily 3 [...] SIG Qnty Indications Ordering Provide r Date Multi Vitamin Tablets 1 by mouth every day Unknown 05/31/2021 Meclizine HCL 25mg Tablets 1 by mouth three times daily as needed Zechariah Betancourt PA -C 12/18/2020 Aspirin 81 81mg Tablets [...] 5'3" BMI (Body Mass Index) 28.3 kg/m2 12/01/2020 8:12am Weight 163.00 lb Home Weight 164lb Height 63 inches 5'3" BMI (Body Mass Index) 28.9 kg/m2 Heart Rate 66 /min BP Systolic Sitting 118 mmHg Ra, medium cuff BP Diastolic Sitting 70 mmHg Ra, medium cuff Results Test Acquired Date Facility Test Result H/L Range Note Lipid Panel 05/27/2021 [facility] nter [phone] Triglycerides Level 175 mg/dL High <150 Cholesterol Level 296 mg/dL High <200 HDL Cholesterol 63 mg/dL Normal >40 LDL Cholesterol 198 mg/dL High <100 Non-HDL-C 233 mg/dL Normal Cholesterol Risk Ratio 4.698 Normal <5 BMP 05/27/2021 [facility] nter [phone] Glucose, Fasting 95 mg/dL Normal 70-100 Blood [...] Level 8.8 mg/dL Normal 8.8-10.2 BMP 01/20/2021 [facility] nter [phone] Glucose, Fasting 82 mg/dL Normal 70-100 Blood [...] 10.1 mg/dL Normal 8.8-10.2 Lipid Panel 01/20/2021 [facility] nter [phone] Triglycerides Level 176 mg/dL High <150 Cholesterol [...] Little GFR Left ESRD GFR <15 on NUT SHELLER MACHINE OPERATOR 2 Units are mL/min/1.73 m2 Chronic Kidney Disease Staging per NKF: Stage I & II GFR >=60 Normal to Mildly Decreased Stage III GFR 30-59 Moderately Decreased Stage IV GFR 15-29 Severely Decreased Stage V GFR <15 Very Little GFR Left ESRD GFR <15 on NUT SHELLER MACHINE OPERATOR Procedures Date Code Description Status 06/01/2021 37235 Office/Outpatient Established Mo d MDM 30-39 Min Completed 06/01/2021 44764 ECG 12-Lead Completed 03/10/2021 92071 Chronic Care MGMT 20 Mins Clinical Staff Time Per Calendar Month Completed 02/06/2021 48673 Chronic Care MGMT 20 Mins Clinical Staff Time Per Calendar Month Completed 12/18/2020 55618 Chronic Care MGMT 20 Mins Clinical Staff [...] Gonzalez 06/01/2021 I25.10 Atherosclerotic heart disease of [place] coronary artery with SKIP Gonzalez 06/01/2021 I71.4 Abdominal aortic aneurysm, witho ut rupture SKIP Gonzalez 06/01/2021 R94.31 Abnormal electrocardiogram [ECG] [EKG] SKIP Gonzalez 06/01/2021 Z71.3 Dietary counseling and surveilla nce SKIP Gonzalez 03/10/2021 I10 Essential (primary) hypertension Onel Thomas MD 03/10/2021 I70.1 Atherosclerosis of renal artery Onel Thomas MD 02/06/2021 I10 Essential (primary) hypertension Onel Thomas MD 02/06/2021 I25.10 Atherosclerotic heart disease of [place] coronary artery with Onel Thomas MD 12/18/2020 I10 Essential (primary) hypertension Onel Thomas MD 12/18/2020 E66.3 Overweight nOel Thomas MD 12/18/2020 I25.10 Atherosclerotic heart disease of [place] coronary artery with Onel Thomas MD Plan [...] of renal artery* Recommendations:* Continue per vascular * I25.10 Atherosclerotic heart disease of [place] coronary artery with* Recommendations:* Begin pitavastatin Continue aspirin at the current dosage Advised patient to contact our office with any chest pain, shortness of breath, new or concerning symptoms * I71.4 Abdominal aortic aneurysm, without rupture* New Medication:* - * Recommendations:* Continue management per vascular Continue [...]
[2021-08-20 15:49] LABS: BASO # 0.1 10^3/uL (0.0-0.2); BASO % 0.6 % (0.0-1.0); EOS # 0.2 10^3/uL (0.0-0.5); EOS % 2.7 % (0.0-3.0); HEMATOCRIT 46.4 % (36.0-47.0); HEMOGLOBIN 15.5 g/dl (12.0-15.5); LYMPH % 33.1 % (24.0-44.0); MEAN CORPUSCULAR HEMOGLOBIN 30.6 pg (27.0-33.0); MEAN CORPUSCULAR HGB CONC 33.4 g/dl (32.0-36.5); MEAN CORPUSCULAR VOLUME 91.7 fl (80.0-96.0); MONO # 0.6 10^3/uL (0.0-0.8); MONO % 6.2 % (2.0-8.0); NEUTROPHILS # 5.1 10^3/uL (1.5-8.5); NEUTROPHILS % 57.1 % (36.0-66.0); PLATELET COUNT, AUTOMATED 279 10^3/uL (150-450); RED BLOOD COUNT 5.06 10^6/uL (4.00-5.40)
[2021-08-20] MEDS ORDERED: ISOVUE-370 76% 100ML VIAL As Ordered ONE (15:55)
[2021-08-20 16:18] LABS: ALBUMIN 3.9 GM/DL (3.2-5.2); ALT/SGPT 35 U/L (12-78); BILIRUBIN,DIRECT < 0.1 MG/DL (0.0-0.2); BILIRUBIN,TOTAL 0.4 MG/DL (0.2-1.0); LIPASE 154 U/L (73-393); TOTAL PROTEIN 7.5 GM/DL (6.4-8.2)
--- NOTE | 2021-08-20 16:25 | REP ---
INDICATION: trauma COMPARISON: None. TECHNIQUE: Standard helical technique after the intravenous administration of 100 cc Isovue 370 FINDINGS: There is no mediastinal or hilar adenopathy. There are no pleural or pericardial effusions. The imaged upper abdomen shows bilateral partially imaged renal cysts. The imaged osseous structures shows no evidence of an acute abnormality. There are spinal degenerative changes. Evaluation of the lung dickerson shows a 7 mm size nodule in the apicoposterior segment of the left upper lobe abutting the major fissure. There is a 5 mm size nodule in the lateral basal segment of the left lower lobe. There is an additional 4 mm size nodule in the left lower lobe which is pleural based. There is a 7 mm size nodule in the right lower lobe abutting the major fissure. There is cylindrical bronchiectasis. There is an incidental calcified granuloma in the left lower lobe and an incidental calcified granuloma in the right upper lobe. IMPRESSION: 1. There are multiple lung nodules as described above. According to the revised Fleischner society criteria the largest nodule represents a category 4A lesion for which a 3 month follow-up chest CT is recommended since are no priors comparison. 2. There is no evidence of acute intrathoracic disease. 3. There are partially imaged bilateral renal cysts which were identified on the previous CT angio of the abdomen obtained 03/26/2019 and appear unchanged. <Electronically signed by Greg Brooke > 08/20/21 [id number]
[2021-08-20 17:10] VITALS: BP 142/90
--- NOTE | 2021-08-21 07:51 | ECGEPIP ---
[facility] - ED Test Date: 2021-08-20 Pat Name: LOY MONTOYA Department: Room: - Gender: Female Special Education Para Professional: DMITRIY : 1950 Requested By: MANJU BACA PA-C. Order Number: [id number] Reading MD: Johny Murphy Measurements Intervals [place] Rate: 59 P: 59 MI: 164 QRS: -6 QRSD: 90 T: 51 QT: 442 QTc: 437 Interpretive Statements Sinus bradycardia POOR R WAVE PROGRESSION SIMILAR TO 01/28/19 Electronically Signed on 08-21-2021 7:51:39 EST by Johny Murphy
== END 2021-08-20 17:20 | disposition home or self-care (01) ==
LOC: M ED 12:07
DX: R07.2 Precordial pain (principal); V49.59XA Passenger injured in collision with other motor vehicles in traffic accident, initial encounter; R91.8 Other nonspecific abnormal finding of lung field; R00.1 Bradycardia, unspecified; N28.1 Cyst of kidney, acquired; I10 Essential (primary) hypertension; I25.10 Atherosclerotic heart disease of native coronary artery without angina pectoris; Z79.82 Long term (current) use of aspirin; Z79.899 Other long term (current) drug therapy
CPT/HCPCS: 71111; 71260; 80047; 80076; 83690; 84484; 85025; 93005; 96360; 99284; Q9967

== ENCOUNTER → 2021-12-02 | Outpatient (CLI) | payer MEDICARE, MEDICAID ==
[~2021-12-02] MED LIST changes: +MECL-86
[2021-12-02 14:14] LABS: CALCIUM LEVEL 9.4 MG/DL (8.8-10.2); CREATININE FOR GFR 1.07 MG/DL (0.55-1.30); FREE T4 0.96 NG/DL (0.76-1.46); GLOMERULAR FILTRATION RATE 53.5 (>39); MAGNESIUM LEVEL 2.1 MG/DL (1.8-2.4); THYROID STIMULATING HORMONE 2.91 uIU/ML (0.358-3.740)
== END ==
LOC: M PLALAB 09:23
PROVIDERS: ATTEND Physician Assistant
DX: R00.2 Palpitations (principal)

== ENCOUNTER → 2022-01-25 | Outpatient (CLI) | payer MEDICARE, MEDICAID | LOC: M RAD 09:05 | PROVIDERS: ATTEND Family Medicine | DX: I71.4 Abdominal aortic aneurysm, without rupture (principal); I70.1 Atherosclerosis of renal artery ==

== ENCOUNTER → 2022-02-25 | Outpatient (CLI) | payer MEDICARE, MEDICAID | LOC: M WHC 09:36 | PROVIDERS: ATTEND Family Medicine | DX: Z12.31 Encounter for screening mammogram for malignant neoplasm of breast (principal) ==

== ENCOUNTER → 2022-03-11 | Outpatient (CLI) | payer MEDICARE, MEDICAID | LOC: M PLAIMG 11:19 | PROVIDERS: ATTEND Family Medicine | DX: R91.8 Other nonspecific abnormal finding of lung field (principal) ==

== ENCOUNTER → 2022-09-15 | Outpatient (CLI) | payer MEDICARE, MEDICAID ==
[~2022-09-15] MED LIST changes: +CLOP75TA99 PO; -PLAV1TAB2 PO
[2022-09-15 11:18] LABS: MAGNESIUM LEVEL 1.7 MG/DL (1.8-2.4)
[2022-09-15 11:21] LABS: BILIRUBIN,TOTAL 0.6 MG/DL (0.3-1.2); CALCIUM LEVEL 10.1 MG/DL (8.3-10.6); CHOLESTEROL RISK RATIO 3.65 (<5); CREATININE FOR GFR 1.11 MG/DL (0.55-1.30); GLOMERULAR FILTRATION RATE 51.2 (>39); HDL CHOLESTEROL 56.4 MG/DL (>40); LDL CHOLESTEROL 105.8 MG/DL (<100); POTASSIUM SERUM 4.7 MMOL/L (3.5-5.1)
== END ==
LOC: M PLALAB 08:22
PROVIDERS: ATTEND Physician Assistant
DX: I25.10 Atherosclerotic heart disease of native coronary artery without angina pectoris (principal)

== ENCOUNTER → 2022-12-01 | Outpatient (REF) | payer MEDICARE, MEDICAID | LOC: M SFHCPLAZ 10:31 | PROVIDERS: ATTEND Family Medicine | DX: I10 Essential (primary) hypertension (principal) ==

== ENCOUNTER → 2022-12-03 | Outpatient (CLI) | payer MEDICARE, MEDICAID ==
[2022-12-03 13:12] LABS: CALCIUM LEVEL 9.8 MG/DL (8.3-10.6); CREATININE FOR GFR 1.04 MG/DL (0.55-1.30); GLOMERULAR FILTRATION RATE 55.1 (>39); POTASSIUM SERUM 4.7 MMOL/L (3.5-5.1)
== END ==
LOC: M PLALAB 08:02
PROVIDERS: ATTEND Student in an Organized Health Care Education/Training Program
DX: I10 Essential (primary) hypertension (principal)

== ENCOUNTER → 2022-12-29 | Outpatient (CLI) | payer MEDICARE, MEDICAID ==
[2022-12-29 12:18] LABS: ALBUMIN 3.8 G/DL (3.2-5.2); BILIRUBIN,TOTAL 0.7 MG/DL (0.3-1.2); CALCIUM LEVEL 9.4 MG/DL (8.3-10.6); CREATININE FOR GFR 1.02 MG/DL (0.55-1.30); GLOMERULAR FILTRATION RATE 56.4 (>39); MAGNESIUM LEVEL 1.8 MG/DL (1.8-2.4); POTASSIUM SERUM 4.6 MMOL/L (3.5-5.1); TOTAL PROTEIN 6.6 G/DL (5.7-8.2)
== END ==
LOC: M PLALAB 09:20
PROVIDERS: ATTEND Physician Assistant
DX: I10 Essential (primary) hypertension (principal)

== ENCOUNTER → 2022-12-29 | Outpatient (CLI) | payer MEDICARE, MEDICAID | LOC: M RAD 08:18 | PROVIDERS: ATTEND Student in an Organized Health Care Education/Training Program | DX: I71.40 Abdominal aortic aneurysm, without rupture, unspecified (principal); I10 Essential (primary) hypertension ==

== ENCOUNTER → 2023-03-22 | Outpatient (CLI) | payer MEDICARE, MEDICAID ==
[2023-03-22 10:41] LABS: CHOLESTEROL RISK RATIO 4.18 (<5); HDL CHOLESTEROL 51.1 MG/DL (>40); LDL CHOLESTEROL 119.7 MG/DL (<100); NON-HDL-C 162.9 MG/DL
== END ==
LOC: M PLALAB 07:58
PROVIDERS: ATTEND Student in an Organized Health Care Education/Training Program
DX: E78.2 Mixed hyperlipidemia (principal)

== ENCOUNTER → 2023-03-25 | Outpatient (CLI) | payer MEDICARE, MEDICAID | LOC: M RAD 08:09 | PROVIDERS: ATTEND Internal Medicine Cardiovascular Disease | DX: I70.1 Atherosclerosis of renal artery (principal) ==

== ENCOUNTER → 2023-04-22 | Outpatient (CLI) | payer MEDICARE, MEDICAID ==
[2023-04-22 11:24] LABS: CREATININE FOR GFR 1.05 MG/DL (0.55-1.30); GLOMERULAR FILTRATION RATE 54.5 (>39)
== END ==
LOC: M PLALAB 07:48
PROVIDERS: ATTEND Student in an Organized Health Care Education/Training Program
DX: I71.40 Abdominal aortic aneurysm, without rupture, unspecified (principal)

== ENCOUNTER → 2023-08-31 | Outpatient (CLI) | payer MEDICARE, MEDICAID ==
[2023-08-31 14:03] LABS: CHOLESTEROL RISK RATIO 4.09 (<5); HDL CHOLESTEROL 54.9 MG/DL (>40); LDL CHOLESTEROL 119.7 MG/DL (<100); NON-HDL-C 170.1 MG/DL
== END ==
LOC: M PLALAB 11:10
PROVIDERS: ATTEND Internal Medicine Cardiovascular Disease
DX: E78.2 Mixed hyperlipidemia (principal)

== ENCOUNTER → 2024-02-14 | Outpatient (CLI) | payer MEDICARE, MEDICAID ==
[2024-02-14 10:31] LABS: CHOLESTEROL RISK RATIO 4.26 (<5); HDL CHOLESTEROL 53.9 MG/DL (>40); LDL CHOLESTEROL 129.1 MG/DL (<100); NON-HDL-C 176.1 MG/DL
== END ==
LOC: M PLALAB 07:09
PROVIDERS: ATTEND Internal Medicine Cardiovascular Disease
DX: I25.10 Atherosclerotic heart disease of native coronary artery without angina pectoris (principal); E78.00 Pure hypercholesterolemia, unspecified

== ENCOUNTER → 2024-03-13 | Outpatient (CLI) | payer MEDICARE, MEDICAID ==
[2024-03-13 13:49] LABS: CALCIUM LEVEL 9.5 MG/DL (8.3-10.6); CREATININE FOR GFR 1.01 MG/DL (0.55-1.30); GLOMERULAR FILTRATION RATE 56.9 (>39); POTASSIUM SERUM 4.4 MMOL/L (3.5-5.1)
== END ==
LOC: M PLALAB 09:47
PROVIDERS: ATTEND Student in an Organized Health Care Education/Training Program
DX: E78.2 Mixed hyperlipidemia (principal)

== ENCOUNTER → 2024-03-27 | Outpatient (CLI) | payer MEDICARE, MEDICAID ==
[~2024-03-27] MED LIST changes: +ISOVUE-370 76% 100ML VIAL As Ordered ONE
== END ==
LOC: M RAD 08:25
PROVIDERS: ATTEND Student in an Organized Health Care Education/Training Program
DX: I71.40 Abdominal aortic aneurysm, without rupture, unspecified (principal); N28.1 Cyst of kidney, acquired
CPT/HCPCS: 74174; Q9967

== ENCOUNTER → 2024-09-12 | Outpatient (CLI) | payer MEDICARE, MEDICAID ==
[~2024-09-12] MED LIST changes: -ISOVUE-370 76% 100ML VIAL As Ordered ONE
== END ==
LOC: M RAD 07:11
PROVIDERS: ATTEND Student in an Organized Health Care Education/Training Program
DX: Z12.2 Encounter for screening for malignant neoplasm of respiratory organs (principal); R91.8 Other nonspecific abnormal finding of lung field; Z87.891 Personal history of nicotine dependence

== ENCOUNTER → 2024-11-01 | Outpatient (CLI) | payer MEDICARE, MEDICAID ==
[2024-11-01 18:49] LABS: CALCIUM LEVEL 10.4 MG/DL (8.3-10.6); CHOLESTEROL RISK RATIO 4.83 (<5); CREATININE FOR GFR 1.08 MG/DL (0.55-1.30); GLOMERULAR FILTRATION RATE 52.5 (>39); HDL CHOLESTEROL 53.1 MG/DL (>40); LDL CHOLESTEROL 141.5 MG/DL (<100); NON-HDL-C 203.9 MG/DL; POTASSIUM SERUM 4.8 MMOL/L (3.5-5.1)
[2024-11-01 18:50] LABS: HEMOGLOBIN A1c 5.4 % (4.0-6.0)
== END ==
LOC: M PLALAB 14:43
PROVIDERS: ATTEND Student in an Organized Health Care Education/Training Program
DX: Z00.00 Encounter for general adult medical examination without abnormal findings (principal); E78.2 Mixed hyperlipidemia; I10 Essential (primary) hypertension; Z79.899 Other long term (current) drug therapy

== ENCOUNTER → 2024-11-02 | Outpatient (CLI) | payer MEDICARE, MEDICAID | LOC: M WHC 09:20 | PROVIDERS: ATTEND Student in an Organized Health Care Education/Training Program | DX: I71.40 Abdominal aortic aneurysm, without rupture, unspecified (principal) ==

== ENCOUNTER → 2025-05-21 | Outpatient (CLI) | payer MEDICARE, MEDICAID | LOC: M RAD 08:40 | PROVIDERS: ATTEND Student in an Organized Health Care Education/Training Program | DX: I71.40 Abdominal aortic aneurysm, without rupture, unspecified (principal) ==

== ENCOUNTER → 2025-07-19 | Outpatient (CLI) | payer MEDICARE, MEDICAID | LOC: M WHC 13:33 | PROVIDERS: ATTEND Student in an Organized Health Care Education/Training Program | DX: Z13.820 Encounter for screening for osteoporosis (principal); Z12.31 Encounter for screening mammogram for malignant neoplasm of breast; R92.313 Mammographic fatty tissue density, bilateral breasts; M85.851 Other specified disorders of bone density and structure, right thigh ==

== ENCOUNTER → 2025-08-15 | Outpatient (REF) | payer MEDICARE, MEDICAID ==
[2025-08-15 10:55] LABS: ALT/SGPT 41.0 U/L (7.0-40); AST/SGOT 42.0 U/L (<34); CALCIUM LEVEL 9.8 MG/DL (8.3-10.6); CARBON DIOXIDE LEVEL 29.0 MMOL/L (20-31); CHLORIDE LEVEL 106.0 MMOL/L (98-107); CHOLESTEROL LEVEL 150.0 MG/DL (<200); CHOLESTEROL RISK RATIO 2.84 (<5); CREATININE FOR GFR 1.07 MG/DL (0.55-1.30); GLOMERULAR FILTRATION RATE 53.5 (>39); LDL CHOLESTEROL 57.5 MG/DL (<100); NON-HDL-C 97.3 MG/DL; POTASSIUM SERUM 4.3 MMOL/L (3.5-5.1); SODIUM LEVEL 144.0 MMOL/L (136-145); TRIGLYCERIDES LEVEL 199.0 MG/DL (<150)
== END ==
LOC: M PLALAB 09:59
PROVIDERS: ATTEND Physician Assistant
DX: E78.2 Mixed hyperlipidemia (principal); I25.10 Atherosclerotic heart disease of native coronary artery without angina pectoris